=== PATIENT | male | born 1940 | race Two or more races ===

== ENCOUNTER 2018-12-12 10:13 | Day surgery (SDC) | payer MEDICARE, MEDICAID ==
--- NOTE | 2018-12-12 10:37 | Pre-Procedure Note/Attestation ---
Pre-Procedure Note/Attestation Complete Prior to Procedure Planned Procedure: left Procedure Narrative: Left RIRS Indications for Procedure Pre-Operative Diagnosis: left renal mass hematuria Attestation I attest that I discussed the nature of the procedure; its benefits; risks and complications; and alternatives (and the risks and benefits of such alternatives ), prior to the procedure, with the patient (or the patient's legal customer support representative). I attest that, if there was a reasonable possibility of needing a blood transfusion, the patient (or the patient's legal customer support representative) was given the [facility] standardized written summary, pursuant to the Kevon [place] Blood Safety Act ([place] Health and Safety Code # 1645, as amended). I attest that I re-evaluated the patient just prior to the surgery and that there has been no change in the patient's H&P, except as documented below: Jericho Desai MD Dec 12, 2018 10:37
[2018-12-26] MEDS ORDERED: Iothalamate Meglumine 60% 30ML INJ ONE (07:07)
== END 2018-12-12 12:13 | disposition home or self-care (01) ==
LOC: SUR 10:13
DX: N28.89 Other specified disorders of kidney and ureter (principal); R31.9 Hematuria, unspecified; Z53.9 Procedure and treatment not carried out, unspecified reason

== ENCOUNTER 2018-12-26 05:10 | Day surgery (SDC) | payer MEDICARE, MEDICAID ==
[2018-12-26] VITALS (10 sets, daily range): BP systolic 95–136; BP diastolic 58–82
[~2018-12-26] VITALS: Ht 167.6 cm; Wt 78.9 kg
[2018-12-26] MEDS ORDERED: TAMSULOSIN HCL0.4 MG ORAL (06:17)
[2018-12-26] MEDS ORDERED: RENA-VITE TABL0.8 M1 PO (06:17)
[2018-12-26] MEDS ORDERED: SYMBICORT 80-10.2 G1 IH (06:17)
[2018-12-26] MEDS ORDERED: PRAVASTATIN SOD20 M1 ORAL (06:17)
[2018-12-26] MEDS ORDERED: DOCUSATE SODIU250 MG ORAL (06:17)
[2018-12-26] MEDS ORDERED: ALLOPURINOL PO (06:17)
[2018-12-26] MEDS ORDERED: VITAMIN D250000 UNI1 ORAL (06:17)
[2018-12-26] MEDS ORDERED: DILTIAZEM 24HR180 M3 ORAL (06:17)
[2018-12-26] MEDS ORDERED: RENVELA0.8 GM ORAL (06:17)
[2018-12-26] MEDS ORDERED: VENTOLIN HFA18 GM INH (06:17)
[2018-12-26] MEDS ORDERED: ceFAZolin sod 1 GM in NS 55 ML IVPB ONE (07:00)
[2018-12-26] MEDS ORDERED: fentaNYL 100 mcg/2 mL IV ONE (07:12)
[2018-12-26] MEDS ORDERED: Lidocaine 1% MPF 10mg/ml 5ml ONE (07:12)
[2018-12-26] MEDS ORDERED: Midazolam 2mg/2ml Inj ONE (07:12)
[2018-12-26] MEDS ORDERED: Propofol 200mg/20ml IV ONE (07:12)
--- NOTE | 2018-12-26 07:20 | Anethesia Preoperative Eval ---
Anesthesia Pre-op PMH/ROS General Date of Evaluation: Dec 26, 2018 Time of Evaluation: 07:19 Anesthesiologist: Humaira Corral CRNA ASA Score: ASA 3 Mallampati Score Class I : Soft palate, uvula, fauces, pillars visible Class II: Soft palate, uvula, fauces visible Class III: Soft palate, base of uvula visible Class IV: Only hard plate visible Mallampati Classification: Class II Surgeon: Lloyd Diagnosis: LEFT Kidney disorder Surgical Procedure: LEFT intrarenal retrograde with kidney biopsy Anesthesia History: none Social History: smoking Family History: no anesthesia problems Allergies: Coded Allergies: CEPHALEXIN (Verified Allergy, Intermediate, 12/26/18) ITCHING LEVOFLOXACIN (Verified Allergy, Intermediate, 12/26/18) ITCHING NITROFURANTOIN (Verified Allergy, Unknown, 12/25/18) Medications: see eMAR Patient NPO?: Yes NPO Date: Dec 26, 2018 NPO Time: 00:00 Past Medical History Cardiovascular: Reports: HTN, CAD, [place] - s/p coronary artery stents, other - hyperlipidemia; Denies: valve dz, arrhythmia Pulmonary: Reports: COPD; Denies: asthma, CARLOS, other Gastrointestinal/Genitourinary: Reports: ESRD - peritoneal dialysis; Denies: GERD, CRI, other Neurologic/Psychiatric: Denies: dementia, CVA, depression/anxiety, TIA, other Endocrine: Denies: DM, hypothyroidism, steroids, other HEENT: Reports: [place] (L), [place] (R); Denies: cataract (L), cataract (R), glaucoma, other Hematology/Immune: Denies: anemia, DVT, bleeding disorder, other Musculoskeletal/Integumentary: Reports: OA; Denies: RA, DJD, DDD, edema, other PMH Narrative: as above PSxH Narrative: see chart Anesthesia Pre-op Phys. Exam Physician Exam Last Vital Signs Date Time Temp Pulse Resp B/P (MAP) Pulse Ox O2 Delivery O2 Flow Rate FiO2 12/26/18 06:37 Room Air 12/26/18 06:08 97.2 74 20 107/58 96 Constitutional: NAD Neurologic: CN 2-12 intact Cardiovascular: RRR, no M/R/G Respiratory: CTA Gastrointestinal: S/NT/ND Airway Exam Mallampati Score: Class II MO: full Neck: FROM TMD: > 3 FB ROM: full Teeth: missing Dentures: upper, lower Anesthesia Pre-op A/P Labs Chemistry Test 12/26/18 06:25 Potassium Level 4.3 MMOL/L (3.5-5.1) Studies Pre-op Studies: EKG - SR Risk Assessment & Plan Assessment: ASA 3, ok to proceed Plan: GETA Status Change Before Surgery: No Pre-Antibiotics Drug: KEVEND Humaira Corral CRNA Dec 26, 2018 07:20
[2018-12-26] MEDS ORDERED: Succinylcholine 20mg/ml 10ml vial ONE (07:28)
[2018-12-26] MEDS ORDERED: Zemuron 50mg/5ml Inj IV ONE (07:28)
[2018-12-26] MEDS ORDERED: Glycopyrrolate 0.2mg/ml 1ml Vial ONE (07:30)
[2018-12-26] MEDS ORDERED: Neostigmine 1mg/ml 10ml Inj ONE (07:30)
[2018-12-26] MEDS ORDERED: Sterile Water For Irrig 2000ml IRRIG ONE (07:30)
--- NOTE | 2018-12-26 07:31 | Pre-Procedure Note/Attestation ---
Pre-Procedure Note/Attestation Complete Prior to Procedure Planned Procedure: left Procedure Narrative: Left RIRS with Retrograde Pylogram stent placement Indications for Procedure Pre-Operative Diagnosis: renal obstruction Attestation I attest that I discussed the nature of the procedure; its benefits; risks and complications; and alternatives (and the risks and benefits of such alternatives ), prior to the procedure, with the patient (or the patient's legal premium service representative). I attest that, if there was a reasonable possibility of needing a blood transfusion, the patient (or the patient's legal premium service representative) was given the [facility] standardized written summary, pursuant to the Kevon [facility] Blood Safety Act ([place] Health and Safety Code # 1645, as amended). I attest that I re-evaluated the patient just prior to the surgery and that there has been no change in the patient's H&P, except as documented below: Jericho Desai MD Dec 26, 2018 07:31
[2018-12-26] MEDS ORDERED: NS Irrig 2000ml IRRIG ONE ×2 (07:39→08:23)
[2018-12-26] MEDS ORDERED: Clindamycin 600mg 50 ML IV ONE (07:47)
--- NOTE | 2018-12-26 08:02 | Brief Operative Note ---
Immediate Post Operative Note Operative Note Pre-op Diagnosis: renal obstruction Procedure: RIRS with RPG left Post-op Diagnosis: same Surgeon: Ambrosio Desai Anesthesia: general Specimen: none Complications: none Condition: stable Fluids: 500 Estimated Blood Loss: minimal Implant(s) used?: Jericho Rincon MD Dec 26, 2018 08:02
[2018-12-26] MEDS ORDERED: D5 1/2NS 1,000 ML IV SCH (08:15)
[2018-12-26] MEDS ORDERED: HYDROcodone/Acetamin 5/325 tab ORAL PRN (08:15)
[2018-12-26] MEDS ORDERED: HYDROmorphone 1mg/ml Carpuject SUBQ PRN (08:15)
[2018-12-26] MEDS ORDERED: Tylenol #3 tab (300mg/30mg) ORAL PRN (08:15)
[2018-12-26] MEDS ORDERED: Esmolol 100mg/10ml Inj ONE (08:22)
[2018-12-26] MEDS ORDERED: Esmolol 100mg/10ml Inj IV ONE (08:45)
[2018-12-26] MEDS ORDERED: Hydromorphone 0.5mg/0.5ml inj IVP PRN (08:45)
--- NOTE | 2018-12-26 08:45 | Immediate Post-Op Evaluation ---
Immediate Post-Op Evalulation Immediate Post-Op Evalulation Procedure: Retrograde intrarenal surgery Date of Evaluation: Dec 26, 2018 Time of Evaluation: 08:25 IV Fluids: 0.9 NS 200 ml Estimated Blood Loss: none Blood Pressure Systolic: 119 Blood Pressure Diastolic: 72 Pulse Rate: 119 Respiratory Rate: 18 O2 Sat by Pulse Oximetry: 100 Temperature (Fahrenheit): 97.3 Pain Score (1-10): 0 Nausea: No Vomiting: No Complications none Patient Status: awake, reacts, patent, extubated Hydration Status: adequate Drug: clindamycin 600 mg IV Given Within 1 Hr of Incision: Yes Time Given: 07:47 Humaira Corral CRNA Dec 26, 2018 08:44
--- NOTE | 2018-12-27 09:32 | Diagnostic Imaging Report ---
INDICATION: Pain, intraoperative TECHNIQUE: Intraoperative imaging Fluoroscopy time: 7 seconds Total dose: 0.99980 mGym2 Total number of images: 4 COMPARISON: None FINDINGS: Intraoperative images demonstrate opacification of normal caliber left ureter. There is abrupt termination of the contrast column in the expected region of the proximal ureter IMPRESSION:
[2018-12-27 11:25] VITALS: BP 112/63
--- NOTE | 2018-12-27 11:25 | 48 Hour Post Anesthesia Eval ---
Post Anesthesia Evaluation Procedure: Retrograde intrarenal surgery Date of Evaluation: Dec 27, 2018 Time of Evaluation: 09:30 Blood Pressure Systolic: 112 0: 63 Pulse Rate: 84 Respiratory Rate: 17 Temperature (Fahrenheit): 97.0 O2 Sat by Pulse Oximetry: 97 Airway: patent Nausea: No Vomiting: No Pain Intensity: 0 Hydration Status: adequate Cardiopulmonary Status: stable Mental Status/LOC: patient returned to baseline Follow-up Care/Observations: per urology Post-Anesthesia Complications: none Follow-up care needed: N/A Humaira Corral CRNA Dec 27, 2018 11:25
--- NOTE | 2018-12-27 13:13 | Operative Note - Dictated ---
DATE OF OPERATION: 12/26/2018 PREOPERATIVE DIAGNOSIS: Left ureteral obstruction, rule out left renal mass. POSTOPERATIVE DIAGNOSIS: Left ureteral obstruction, rule out left renal mass. OPERATION: Cystoscopy, retrograde intrarenal surgery, retrograde pyelogram of the left ureter and the left kidney. HAND FRETTED INSTRUMENT MAKER: Jericho Desai M.D. ANESTHESIA: General. FINDINGS: Completely obstructing left ureter with most likely ureteral mass. INDICATIONS FOR SURGERY: The patient is on peritoneal dialysis who developed gross hematuria. CT urogram showed filling defects in the collecting system of the left kidney and ureteral dilation. The patient thus was hospitalized for acute urinary tract infection as well as his retention cleared. He was started on peritoneal dialysis and prepared for surgery. I discussed this case with my colleagues including the vice president payment following the patient who agreed with the plan and the patient signed a consent. DESCRIPTION OF PROCEDURE: Brought to the operating room, placed in lithotomy position. Prepped and draped in standard fashion. Under general anesthesia, cystoscope was introduced into the bladder. Bladder was cannulated with a catheter. Contrast was injected into the left ureter. There was an abrupt obstruction at the level of the upper left ureter. Ureteroscope flexible ureteroscopy showed some filling defects in the collecting system and ureter at the upper level with obstruction. Procedure was then terminated. The patient was transferred to recovery room in stable condition. No evidence of complications. Sponge count and instrument count was correct. Jericho Desai M.D. DR: CIARAN JOB#: [id number] CC:
== END 2018-12-26 10:05 | disposition home or self-care (01) ==
LOC: SUR 05:10
DX: N13.5 Crossing vessel and stricture of ureter without hydronephrosis (principal); I25.2 Old myocardial infarction; Z95.5 Presence of coronary angioplasty implant and graft; E78.5 Hyperlipidemia, unspecified; I13.11 Hypertensive heart and chronic kidney disease without heart failure, with stage 5 chronic kidney disease, or end stage renal disease; N18.6 End stage renal disease; Z99.2 Dependence on renal dialysis; M19.90 Unspecified osteoarthritis, unspecified site; J44.9 Chronic obstructive pulmonary disease, unspecified; Z88.8 Allergy status to other drugs, medicaments and biological substances
CPT/HCPCS: 36415; 52000; 74420; 76000; 84132; J0330; J2250; J2704; J2710; J3010; 94003; 94150; S0077

== ENCOUNTER 2019-02-06 05:36 | Inpatient (IN) | payer MEDICARE, MEDICAID ==
[2019-02-06] VITALS (26 sets, daily range): BP systolic 59–121; BP diastolic 39–67
[~2019-02-06] VITALS: Ht 165.1 cm; Wt 75.7 kg
[~2019-02-06 05:36] MED LIST: ALLOPURINOL PO; DILTIAZEM 24HR180 M3 ORAL; DOCUSATE SODIU250 MG ORAL; PRAVASTATIN SOD20 M1 ORAL; RENA-VITE TABL0.8 M1 PO; RENVELA0.8 GM ORAL; SYMBICORT 80-10.2 G1 IH; TAMSULOSIN HCL0.4 MG ORAL; VENTOLIN HFA18 GM INH; VITAMIN D250000 UNI1 ORAL
[2019-02-06] MEDS ORDERED: fentaNYL 100 mcg/2 mL IV ONE (07:08)
[2019-02-06] MEDS ORDERED: Midazolam 2mg/2ml Inj ONE ×2 (07:08→10:31)
[2019-02-06] MEDS ORDERED: Propofol 200mg/20ml IV ONE (07:08)
[2019-02-06] MEDS ORDERED: Lidocaine 1% MPF 10mg/ml 5ml ONE ×2 (07:08→07:09)
[2019-02-06] MEDS ORDERED: Phenylephrine 10mg/ml Vial ONE (07:09)
[2019-02-06] MEDS ORDERED: ePHEDrine 50mg/ml Inj ONE (07:09)
[2019-02-06] MEDS ORDERED: Bupivacaine 0.5% Inj 30 ml vial INJ ONE (07:14)
[2019-02-06] MEDS ORDERED: Succinylcholine 20mg/ml 10ml vial ONE (07:33)
[2019-02-06] MEDS ORDERED: Zemuron 50mg/5ml Inj IV ONE (07:33)
--- NOTE | 2019-02-06 07:47 | Pre-Procedure Note/Attestation ---
Pre-Procedure Note/Attestation Complete Prior to Procedure Planned Procedure: left Procedure Narrative: Laparoscopic nephroureterectomy Indications for Procedure Pre-Operative Diagnosis: left renal mass Attestation I attest that I discussed the nature of the procedure; its benefits; risks and complications; and alternatives (and the risks and benefits of such alternatives ), prior to the procedure, with the patient (or the patient's legal event marketing representative). I attest that, if there was a reasonable possibility of needing a blood transfusion, the patient (or the patient's legal event marketing representative) was given the [facility] standardized written summary, pursuant to the Kevon [place] Blood Safety Act ([place] Health and Safety Code # 1645, as amended). I attest that I re-evaluated the patient just prior to the surgery and that there has been no change in the patient's H&P, except as documented below: Jericho Desai MD Feb 06, 2019 07:47
--- NOTE | 2019-02-06 07:51 | Anethesia Preoperative Eval ---
Anesthesia Pre-op PMH/ROS General Date of Evaluation: Feb 06, 2019 Time of Evaluation: 07:20 Anesthesiologist: Humaira Corral CRNA ASA Score: ASA 4 Mallampati Score Class I : Soft palate, uvula, fauces, pillars visible Class II: Soft palate, uvula, fauces visible Class III: Soft palate, base of uvula visible Class IV: Only hard plate visible Mallampati Classification: Class II Surgeon: Lloyd Diagnosis: Left renal mass, ESRD Surgical Procedure: LEFT laparoscopic nephrectomy, HD catheter placement Anesthesia History: none Social History: smoking Family History: no anesthesia problems Allergies: Coded Allergies: CEPHALEXIN (Verified Allergy, Intermediate, 12/26/18) ITCHING LEVOFLOXACIN (Verified Allergy, Intermediate, 12/26/18) ITCHING NITROFURANTOIN (Verified Allergy, Unknown, 12/25/18) Medications: see eMAR Patient NPO?: Yes NPO Date: Feb 05, 2019 NPO Time: 1300 Past Medical History Cardiovascular: Reports: HTN, CAD, [place] - 1994 s/p [place] stents, other - hypercholesterolemia Pulmonary: Reports: asthma Gastrointestinal/Genitourinary: Reports: GERD, ESRD - Daily PD, other - LEFT renal CA HEENT: Reports: cataract (L), cataract (R), [place] (L), [place] (R) Hematology/Immune: Reports: anemia, other - Thrombocytopenia PMH Narrative: as noted above PSxH Narrative: see H & P Anesthesia Pre-op Phys. Exam Physician Exam Last Vital Signs Date Time Temp Pulse Resp B/P (MAP) Pulse Ox O2 Delivery O2 Flow Rate FiO2 02/06/19 06:12 Room Air Constitutional: NAD Neurologic: other - alert and oriented Cardiovascular: RRR Respiratory: CTA Gastrointestinal: S/NT/ND Airway Exam Mallampati Score: Class IV MO: full Neck: FROM TMD: > 3 FB ROM: full Teeth: missing Dentures: upper, lower Anesthesia Pre-op A/P Labs Hematology Test 02/06/19 07:44 White Blood Count Pending Red Blood Count Pending Hemoglobin Pending Hematocrit Pending Mean Corpuscular Volume Pending Mean Corpuscular Hemoglobin Pending Mean Corpuscular Hemoglobin Concent Pending Red Cell Distribution Width Pending Platelet Count Pending Mean Platelet Volume Pending Neutrophils (%) (Auto) Pending Lymphocytes (%) (Auto) Pending Monocytes (%) (Auto) Pending Eosinophils (%) (Auto) Pending Basophils (%) (Auto) Pending Chemistry Test 02/06/19 07:44 Sodium Level Pending Potassium Level Pending Chloride Level Pending Carbon Dioxide Level Pending Blood Urea Nitrogen Pending Creatinine Pending Estimat Glomerular Filtration Rate Pending Glucose Level Pending Calcium Level Pending Studies Pre-op Studies: EKG - DR, CXR - no acute disease, echo - LVEF 65%m mild diastolic dysfunction Risk Assessment & Plan Assessment: ASA 4, ok to proceed Plan: GETA Status Change Before Surgery: No Pre-Antibiotics Drug: Humaira Sterling CRNA Feb 06, 2019 07:51
[2019-02-06] MEDS ORDERED: NS Irrig 1000ml IRRIG ONE ×2 (07:53→09:00)
[2019-02-06 08:00] LABS: HEMATOCRIT 34.7 % (42.0-52.0); MEAN CORPUSCULAR VOLUME 99 FL (80-99); PLATELET COUNT 82 K/UL (150-450); RED BLOOD COUNT 3.52 M/UL (4.70-6.10); RED CELL DISTRIBUTION WIDTH 15.2 % (11.6-14.8); WHITE BLOOD COUNT 4.5 K/UL (4.8-10.8)
[2019-02-06] MEDS ORDERED: Acetaminophen (Non formulary) 100 ML IV ONE (08:00)
[2019-02-06] MEDS ORDERED: Sterile Water Irrig 1000ml IRRIG ONE (08:00)
[2019-02-06] MEDS ORDERED: NS Irrig 1000ml ONE (08:00)
[2019-02-06 08:03] LABS: ANION GAP 13 mmol/L (5-15); BLOOD UREA NITROGEN 53 mg/dL (7-18); CALCIUM 8.1 MG/DL (8.5-10.1); CARBON DIOXIDE 23 MMOL/L (21-32); CHLORIDE 105 MMOL/L (98-107); CREATININE 13.8 MG/DL (0.55-1.30); POTASSIUM 3.8 MMOL/L (3.5-5.1); SODIUM 141 MMOL/L (136-145)
[2019-02-06] MEDS ORDERED: Albuterol 90mcg Inhaler 8gm INH ONE ×2 (08:06→08:07)
[2019-02-06] MEDS ORDERED: Clindamycin 600mg 50 ML IV ONE (08:07)
[2019-02-06] MEDS ORDERED: Hydromorphone 0.5mg/0.5ml inj IVP PRN (10:15)
[2019-02-06] MEDS ORDERED: Metoclopramide 10mg/2ml Inj IVP PRN (10:15)
[2019-02-06] MEDS ORDERED: DiphenhydrAMINE 50mg/ml Inj ONE (10:30)
[2019-02-06] MEDS ORDERED: Glycopyrrolate 0.2mg/ml 1ml Vial ONE (10:37)
[2019-02-06] MEDS ORDERED: Neostigmine 1mg/ml 10ml Inj ONE (10:37)
[2019-02-06 10:59] LABS: HEMATOCRIT 29.8 % (42.0-52.0); HEMOGLOBIN 9.7 G/DL (14.2-18.0); MEAN CORPUSCULAR VOLUME 98 FL (80-99); PLATELET COUNT 108 K/UL (150-450); RED BLOOD COUNT 3.04 M/UL (4.70-6.10); RED CELL DISTRIBUTION WIDTH 15.3 % (11.6-14.8); WHITE BLOOD COUNT 18.5 K/UL (4.8-10.8)
--- NOTE | 2019-02-06 11:30 | Brief Operative Note ---
Immediate Post Operative Note Operative Note Pre-op Diagnosis: left renal mass Procedure: Left laparoscopic radical nephroureterectomy Post-op Diagnosis: same Post-op Diagnosis: same as pre-op Surgeon: Ambrosio Desai Naval Architect Specialist: Nickolas Chinchilla Anesthesia: general Specimen: yes Complications: none Condition: stable Fluids: 2000 Estimated Blood Loss: volume - 5 Implant(s) used?: No Jericho Desai MD Feb 06, 2019 11:30
--- NOTE | 2019-02-06 11:40 | NUR ---
CASE MANAGEMENT:REVIEW 78 YR OLD MALE HERE FOR SURGERY SI: LEFT RENAL MASS 97.2 69 20 121/67 96% ON RA H/H-11.0/34.7 PLT-82 IS:TO SURGERY FOR: LT LAPAROSCOPIC RADICAL NEPHROURETERECTOMY : CURRENTLY IN SURGERY interqual criteria met
--- NOTE | 2019-02-06 11:42 | Immediate Post-Op Evaluation ---
Immediate Post-Op Evalulation Immediate Post-Op Evalulation Procedure: LEFT laparoscopic nephrectomy, HD catheter insertion Date of Evaluation: Feb 06, 2019 Time of Evaluation: 11:06 IV Fluids: 0.9 NS 3500 ml Blood Products: 500 ml PRBC, 275 ml Plateletpheresis Estimated Blood Loss: 1000ml Urinary Output: 0 Blood Pressure Systolic: 74 Blood Pressure Diastolic: 47 Pulse Rate: 91 Respiratory Rate: 20 O2 Sat by Pulse Oximetry: 100 Temperature (Fahrenheit): 98.0 Pain Score (1-10): 0 Nausea: No Vomiting: No Complications hypotension 2/2 to hypovolemia (EBL 1000 ml); plan to admit to ICU, additional PRBCs ordered Patient Status: awake, reacts, patent, extubated Hydration Status: other - see complications note above Drug: clindamycin 600 mg Iv @0815; gentamycin 80 mg IV @ 0950 Given Within 1 Hr of Incision: Yes Time Given: 08:15 Humaira Corral CRNA Feb 06, 2019 11:42
--- NOTE | 2019-02-06 12:30 | NUR ---
NURSE NOTES: Received the patient from SCOTT Farris. Patient is awake, alert and orientedx4. On 4L via NC with a humidifier, O2 sat 100%. SR noted on the monitor. abd surgical site dressing intact, clean and dry. Left hand 20G and left forearm 22G intact and patent, 3rd unit PRBC blood transfusion ongoing. Patient on SCDs on bilateral lower extremities. Chest xray done before patient was transferred. labs to be done 1hr after blood transfusion is completed. Checked pt's belongings. Pt's son at bedside. Bed in lowest position, locked, side rails upx2, bed alarm on. Call light within reach. Will continue to monitor.
--- NOTE | 2019-02-06 13:02 | Diagnostic Imaging Report ---
Indication: Shortness of breath Technique: One view of the chest Comparison: none Findings: There is a left jugular temporary dialysis catheter in place, tip projected at the level the mid superior vena cava. No pneumothorax. Lungs pleural spaces are clear. There is atelectasis at the left lung base. Impression: No acute process
--- NOTE | 2019-02-06 13:10 | NUR ---
NURSE NOTES: Dr. Chaudhary at bedside to assess the patient. updated on pt's status. new labs and IVF order received. Per Dr. Jet MD to enter all other orders including admitting orders. Addendum: 02/06/19 at 1549 by ANUSHA LOPEZ RN aware of low BP
--- NOTE | 2019-02-06 13:29 | Consultation ---
Consult Note Assessment/Plan ESRD on CAPD Left Nephrectomy h/o Stent Smoke # [id number] Tyson Chaudhary MD Feb 06, 2019 13:29
[2019-02-06] MEDS ORDERED: HYDROmorphone 1mg/ml Carpuject IVP PRN (13:30)
[2019-02-06] MEDS ORDERED: D5NS 1,000 ML IV SCH (13:30)
--- NOTE | 2019-02-06 13:30 | NUR ---
NURSE NOTES: blood transfusion completed. verified blood transfusion order with Dr. Chinchilla. Total of 3 units of PRBC to be given per Dr. Chinchilla. Addendum: 02/06/19 at 1537 by ANUSHA LOPEZ RN No adverse reaction noted.
[2019-02-06] MEDS: D5NS 1,000 ML IV SCH (14:11)
[2019-02-06] MEDS ORDERED: LACTULOSE10 GM/153 PO (14:34)
[2019-02-06 15:12] LABS: INR 1.1 (0.9-1.1)
[2019-02-06 15:15] LABS: HEMATOCRIT 32.3 % (42.0-52.0); HEMOGLOBIN 10.5 G/DL (14.2-18.0); MEAN CORPUSCULAR VOLUME 98 FL (80-99); PLATELET COUNT 90 K/UL (150-450); RED BLOOD COUNT 3.29 M/UL (4.70-6.10); WHITE BLOOD COUNT 17.4 K/UL (4.8-10.8)
[2019-02-06 15:21] LABS: ANION GAP 14 mmol/L (5-15); BLOOD UREA NITROGEN 54 mg/dL (7-18); CARBON DIOXIDE 20 MMOL/L (21-32); CHLORIDE 109 MMOL/L (98-107); CREATININE 13.3 MG/DL (0.55-1.30); POTASSIUM 4.2 MMOL/L (3.5-5.1); SODIUM 143 MMOL/L (136-145)
[2019-02-06 15:32] LABS: ALANINE AMINOTRANSFERASE 35 U/L (12-78); ALBUMIN 1.7 G/DL (3.4-5.0); ALBUMIN/GLOBULIN RATIO 0.6 (1.0-2.7); ALKALINE PHOSPHATASE 195 U/L (46-116); ASPARTATE AMINO TRANSFERASE 42 U/L (15-37); BILIRUBIN,TOTAL 1.7 MG/DL (0.2-1.0)
[2019-02-06 15:33] LABS: BILIRUBIN,DIRECT 0.6 MG/DL (0.0-0.3)
[2019-02-06 15:44] LABS: PHOSPHORUS 7.8 MG/DL (2.5-4.9)
--- NOTE | 2019-02-06 15:45 | NUR ---
NURSE NOTES: Encouraged patient to use incentive spirometer. Patient education provided. Pt's son at bedside.
--- NOTE | 2019-02-06 16:10 | NUR ---
NURSE NOTES: Pt is seen by Dr. Chinchilla. MD made aware of lab results. New orders noted.
[2019-02-06] MEDS ORDERED: Gentamicin 120mg/100ml NS INJ 100 ML IVPB ONE (16:15)
[2019-02-06] MEDS ORDERED: DiphenhydrAMINE 50mg/ml Inj IVP PRN (16:15)
[2019-02-06] MEDS ORDERED: Vancomycin 1 GM in D5W 275 ML IVPB ONE (17:00)
--- NOTE | 2019-02-06 17:09 | NUR ---
NURSE NOTES: Patient on room air, O2 sat 100%. Denies SOB.
--- NOTE | 2019-02-06 17:15 | Consultation ---
DATE OF CONSULTATION: 02/06/2019 RENAL CONSULTATION: CONSULTING PHYSICIAN: Tyson Chaudhary M.D. HISTORY OF PRESENT ILLNESS: I was asked to evaluate the patient at the request of Dr. Jericho Desai postoperatively for dialysis management. The patient is a 78-year-old male who came in this morning, electively underwent laparoscopic left nephrectomy. The patient known to have end-stage renal disease and past history of coronary artery disease and status post stent placement. The patient however had a Cardiology clearance prior to surgery. Postoperatively, I am seeing the patient in the intensive care unit room B with son at the bedside. ALLERGIES: Cephalexin, levofloxacin, and nitrofurantoin. MEDICATIONS: Include allopurinol, Cardizem, stool softener, vitamin D, lactulose, Pravachol, Renvela, Symbicort, and Flomax. HABITS: The patient has been a smoker. PAST HISTORY: As mentioned, the patient has history of hyperuricemia, end-stage renal disease on CAPD for the past 4 to 5 years, coronary artery disease, high cholesterol, obstructive lung disease, and BPH. PHYSICAL EXAMINATION: VITAL SIGNS: Right now in ICU, the patient's blood pressure is 85 to 95. The patient receiving the third unit of packed RBCs. The patient is not in any distress. Pulse rate 85, pulse ox 96%. The patient is afebrile. HEENT: Head is normocephalic. Sclerae not icteric. The patient is arousable. Breathing easy through nasal cannula. NECK: Supple. HEART: Regular. LUNGS: No wheeze. No rhonchi. Poor inspiratory effort. ABDOMEN: A Tenckhoff catheter is in place and scar of today's surgery in the midupper abdomen seen. ABDOMEN: Soft. Bowel sounds not present. EXTREMITIES: Lower extremities, no edema. NEUROLOGIC: The patient is arousable and moves all extremities. IMPRESSION: 1. Postoperative day #1, left nephrectomy by Dr. Desai and also general surgeon, Dr. Maxi Chinchilla. 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 2. End-stage renal disease, on CAPD. 3. History of hypertension, coronary artery disease, high cholesterol, and obstructive lung disease. PLAN: At this point is postop care. Dr. Desai asked me to call Dr. Luis Maher as an senior sql developer. Meanwhile, the patient's blood work will be repeated. Hemodynamic support will be provided. As needed will be dialyzed through the left jugular Case catheter that is already put in the emergency room since post abdominal surgery CAPD cannot be done. The patient will be NPO. Pain medications will be given and according to how the patient's condition evolves, we will make the proper changes in our future management. Tyson Chaudhary M.D. DR: HALI JOB#: [id number] CC:
[2019-02-06] MEDS: Midodrine 10mg tab ORAL SCH (17:26)
[2019-02-06] MEDS ORDERED: Gentamicin inj 120 MG in NS 110 ML IVPB ONE (18:00)
--- NOTE | 2019-02-06 18:00 | NUR ---
NURSE NOTES: Patient refused to eat dinner at this time. Patient denies pain at this time. Patient resting in bed comfortably with eyes closed. Will continue to monitor.
--- NOTE | 2019-02-06 19:10 | NUR ---
HAND-OFF: Report given to SCOTT Donnelly. Addendum: 02/06/19 at 1910 by ANUSHA LOPEZ RN Correction: Report given to SCOTT Samuel.
--- NOTE | 2019-02-06 19:30 | NUR ---
NURSE NOTES:Received pt asleep but easily arousable to verbal stimuli, pt S/P Left laparoscopic radical nephroureterectomy, laparoscopic site drsg dry and intact, with peritoneal cath well secured with tape to avoid being pulled. SR on the monitor, Bp stable afebrile. Case cath Left IJ with drsg dry and intact. Pt is anuric, On 02 at 2L/nc No SOB noted. encouraged to use incentive spirometer, tolerated x 10 while awake and was able to raise 1000ml.02 sat 100%. will continue to monitor.
[2019-02-06] MEDS: Hydromorphone 0.5mg/0.5ml inj IVP PRN (20:23)
[2019-02-06] MEDS: Pantoprazole Inj IVP SCH (21:21)
--- NOTE | 2019-02-06 21:30 | NUR ---
NURSE NOTES:Tolerating sips of water , HOB kept elevated, on aspiration precaution.
[2019-02-06 22:04] LABS: ANION GAP 13 mmol/L (5-15); BLOOD UREA NITROGEN 54 mg/dL (7-18); CALCIUM 7.2 MG/DL (8.5-10.1); CARBON DIOXIDE 20 MMOL/L (21-32); CHLORIDE 107 MMOL/L (98-107); CREATININE 13.4 MG/DL (0.55-1.30); POTASSIUM 4.5 MMOL/L (3.5-5.1); SODIUM 140 MMOL/L (136-145)
[2019-02-06 22:18] LABS: HEMATOCRIT 29.1 % (42.0-52.0); HEMOGLOBIN 9.5 G/DL (14.2-18.0); MEAN CORPUSCULAR VOLUME 96 FL (80-99); PLATELET COUNT 75 K/UL (150-450); RED BLOOD COUNT 3.02 M/UL (4.70-6.10); RED CELL DISTRIBUTION WIDTH 15.4 % (11.6-14.8); WHITE BLOOD COUNT 11.7 K/UL (4.8-10.8)
--- NOTE | 2019-02-06 23:07 | NUR ---
NURSE NOTES:Dr Chinchilla was aware with pts latest CBC. No orders given.
[2019-02-07] VITALS (24 sets, daily range): BP systolic 95–145; BP diastolic 38–83
--- NOTE | 2019-02-07 00:15 | Operative Note - Dictated ---
DATE OF OPERATION: 02/06/2019 PREOPERATIVE DIAGNOSIS: Left renal mass. POSTOPERATIVE DIAGNOSIS: Left renal mass. OPERATION PERFORMED: 1. Laparoscopic left radical nephroureterectomy performed by Dr. Jericho Desai. 2. Hemostasis of splenic bleeding. 3. Left internal jugular temporary hemodialysis catheter placement. SURGEONS: Maxi Chinchilla M.D. and Jericho Desai M.D. ANESTHESIA: Humaira Corral, TUMBLER OPERATOR, CONFIGURATION MANAGEMENT ADVISOR. ESTIMATED BLOOD LOSS: See records. WOUND CLASSIFICATION: Class 1. COUNTS: Sponge and needle count correct x2. COMPLICATIONS: None. DRAINS: None. OPERATIVE NOTE: I was called to come evaluate and help assist Dr. Jericho Desai for laparoscopic left radical nephroureterectomy at which time a large dense left kidney with significant adhesions to the spleen and surrounding structures was identified and dissected out. There was necessity to dissect around the spleen with the inferior pole of spleen capsule was violated as anticipated. Following this, the remainder of the nephroureterectomy was difficult to managed. Please see Dr. Jericho Desai's operative note for details. Once that portion of procedure was completed, we evaluated for hemostasis and to control hemostasis of the spleen for control rather than splenectomy or more aggressive interventions. Initially, we began by identifying the areas of spleen that required hemostasis. A lap was placed and pressure was held for a few minutes. Following this, the area was evaluated and he had improved significantly. There was still some oozing and therefore FloSeal and Surgicel were applied and gentle pressure was held again. After a course of few minutes, it was re-evaluated and fortunately good hemostasis was identified and spleen was salvageable and salvaged without any complication. Following this, the remainder of the abdomen was inspected and noted to be hemostatic without any complications. The renal hilum was identified and noted to be with intact clips and surgical jaci with good hemostasis. No other abnormalities or complications were identified. The remainder of bowel contents were identified and noted to be without complication. At this time, bowel contents left in anatomic position and the procedure was concluded with closure of the fascia and skin incisions followed by dressings. Following the completion of the dressings, the patient has history of end-stage renal disease on peritoneal dialysis. Unfortunately, peritoneal dialysis cannot be completed at this time given the severity and nature of the recent surgery and therefore the patient will require hemodialysis and hopefully a temporary short time until he is allowed to heal from the recent surgery. A temporary hemodialysis catheter was recommended and the patient consented to procedure prior. The left neck was prepped and draped in the standard surgical fashion. Using ultrasound guidance, the left internal jugular vein was identified and cannulated under direct visualization using a finder needle. Once good venous flow was identified, a guidewire was placed through the finder needle and finder needle removed. Ultrasound sound was used and the guidewire was identified to be into the left internal jugular vein coursing down inferiorly. Following this, the ultrasound was used and a guidewire was identified in the left internal jugular vein coursing inferiorly. Following this, a small skin incision was made at the level of the guidewire. Following this, dilators were used to dilate the tract. The temporary hemodialysis catheter was then inserted over the guidewire without complication. Dilator was removed and discarded. Both ports flushed and aspirated appropriately without complication. Ports were heparinized. The catheter was sutured to the skin using provided nylon suture. Dressings were applied. Postprocedure chest x-ray was obtained identifying tip of catheter in the superior vena cava without complication. The patient tolerated the procedure well, was extubated and taken to intensive care unit in stable condition. Maxi Chinchilla M.D. DR: DREW JOB#: [id number] CC: SARAH
--- NOTE | 2019-02-07 01:00 | NUR ---
NURSE NOTES:Dozing on and off with VSS.
[2019-02-07] MEDS: Hydromorphone 0.5mg/0.5ml inj IVP PRN ×3 (02:03→18:51)
--- NOTE | 2019-02-07 02:05 | NUR ---
NURSE NOTES:Hydromorphone 0.5mg ivp given for post surgical pain scale of 10.
--- NOTE | 2019-02-07 04:00 | NUR ---
NURSE NOTES:Complete bath with bed changed done.
[2019-02-07 04:43] LABS: HEMATOCRIT 29.8 % (42.0-52.0); HEMOGLOBIN 9.7 G/DL (14.2-18.0); MEAN CORPUSCULAR VOLUME 97 FL (80-99); PLATELET COUNT 82 K/UL (150-450); RED BLOOD COUNT 3.07 M/UL (4.70-6.10); RED CELL DISTRIBUTION WIDTH 15.9 % (11.6-14.8); WHITE BLOOD COUNT 8.4 K/UL (4.8-10.8)
--- NOTE | 2019-02-07 05:00 | NUR ---
NURSE NOTES:Tolerating well incentive spirometer .
[2019-02-07 05:25] LABS: ALANINE AMINOTRANSFERASE 28 U/L (12-78); ALBUMIN 2.4 G/DL (3.4-5.0); ALBUMIN/GLOBULIN RATIO 0.8 (1.0-2.7); ALKALINE PHOSPHATASE 158 U/L (46-116); ANION GAP 13 mmol/L (5-15); ASPARTATE AMINO TRANSFERASE 36 U/L (15-37); BILIRUBIN,TOTAL 0.8 MG/DL (0.2-1.0); BLOOD UREA NITROGEN 56 mg/dL (7-18); CALCIUM 7.4 MG/DL (8.5-10.1); CARBON DIOXIDE 20 MMOL/L (21-32); CHLORIDE 107 MMOL/L (98-107); CHOLESTEROL 84 MG/DL (< 200); CREATININE 13.7 MG/DL (0.55-1.30); FERRITIN 429 NG/ML (8-388); GAMMA GLUTAMYL TRANSPEPTIDASE 83 U/L (5-85); HDL CHOLESTEROL 39 MG/DL (40-60); PHOSPHORUS 9.3 MG/DL (2.5-4.9); POTASSIUM 4.7 MMOL/L (3.5-5.1); SODIUM 140 MMOL/L (136-145); TRIGLYCERIDES 75 MG/DL (30-150)
[2019-02-07 05:43] LABS: % IRON SATURATION 21 % (15-50); IRON 26 ug/dL (50-175); TOTAL IRON BINDING CAPACITY 122 ug/dL (250-450)
--- NOTE | 2019-02-07 06:00 | NUR ---
NURSE NOTES:Abdominal drsg dry and intact. with peritoneal cath in place.
--- NOTE | 2019-02-07 07:25 | NUR ---
NURSE NOTES: Called [facility] dialysis center for urgent HD order, confirmed with Dialysis nurseJuan Alberto.
--- NOTE | 2019-02-07 07:32 | NUR ---
HAND-OFF: Report given to Nessa Salinas RN
--- NOTE | 2019-02-07 07:45 | NUR ---
NURSE NOTES: Received the patient from SCOTT Samuel. Patient is awake, alert and orientedx4, resting in bed. O2 sat 99% on Room air. SR noted on the monitor. no acute distress noted. abd surgical site dressings intact, clean and dry. Patient noted with mild tenderness around surgical site. Left hand 20G and left forearm 22G intact and patent, running D5NS at 50ml/hr. Patient on SCDs on bilateral lower extremities. Patient refused breakfast at this time. Encouraged to use incentive spirometer. VSS, afebrile. Bed in lowest position, locked, side rails upx3, bed alarm on. Call light within reach. Will continue to monitor.
--- NOTE | 2019-02-07 08:00 | NUR ---
NURSE NOTES: dialysis consent signed by the patient, filed in the chart.
[2019-02-07] MEDS: Pantoprazole Inj IVP SCH ×2 (08:39→21:20)
[2019-02-07] MEDS: D5NS 1,000 ML IV SCH (08:39)
[2019-02-07] MEDS: Midodrine 10mg tab ORAL SCH ×3 (08:39→17:10)
--- NOTE | 2019-02-07 09:05 | NUR ---
NURSE NOTES: Patient c/o mid abd pain around surgical site. prn pain med given. pt resting in bed with eyes closed at this time.
[2019-02-07] MEDS: Metoclopramide 10mg/2ml Inj IVP SCH ×3 (09:56→21:20)
--- NOTE | 2019-02-07 10:10 | NUR ---
NURSE NOTES: Patient is exercising with physical therapist. VSS. patient tolerating well.
--- NOTE | 2019-02-07 10:25 | NUR ---
NURSE NOTES: Okay to use new left IJ dialysis access for dialysis. HD nurse at bedside.
--- NOTE | 2019-02-07 10:45 | NUR ---
Social Service Note Patient is alert, oriented and verbally responsive. Patient lives at home with his [place] [phone]. Patient is a full code. Patient was independent prior to admission and receives dialysis 3x a week. Patient will return home once medically appropriate and will follow up with PCP. Will monitor and be available as needed.
--- NOTE | 2019-02-07 11:56 | NUR ---
NURSE NOTES: Hemodialysis ongoing, dialysis at bedside, VSS. No c/o pain at this time.
[2019-02-07] MEDS ORDERED: Heparin 1000 units/ml 1ml Vial INJ SCH (12:30)
[2019-02-07] MEDS ORDERED: Heparin Sod 1000 units/ml 10ml INJ SCH (12:30)
[2019-02-07] MEDS ORDERED: Heparin 5000 units/ml inj INJ SCH (12:30)
--- NOTE | 2019-02-07 12:55 | NUR ---
NURSE NOTES: Dialysis completed, 1.5L out, VSS. Patient sitting on the side of the bed. No acute distress.
--- NOTE | 2019-02-07 13:10 | 48 Hour Post Anesthesia Eval ---
Post Anesthesia Evaluation Procedure: LEFT laparoscopic nephrectomy, HD catheter insertion Date of Evaluation: Feb 07, 2019 Time of Evaluation: 13:09 Blood Pressure Systolic: 104 0: 75 Pulse Rate: 72 Respiratory Rate: 20 Temperature (Fahrenheit): 97.6 O2 Sat by Pulse Oximetry: 98 Airway: patent Nausea: No Vomiting: No Pain Intensity: 3 Hydration Status: adequate Cardiopulmonary Status: stable no pressors Mental Status/LOC: patient returned to baseline Follow-up Care/Observations: n/a Post-Anesthesia Complications: none Follow-up care needed: N/A Aristeo Estrada MD Feb 07, 2019 13:10
--- NOTE | 2019-02-07 13:33 | Nephrology Progress Note ---
Assessment/Plan Problem List: (1) ESRD (end stage renal disease) (2) S/p nephrectomy (3) CAD (coronary artery disease) (4) Smoker Plan HD in process- tolerating well IV Protonix slow hydrate Midodrine antibiotic coverage Subjective ROS Limited/Unobtainable: No Constitutional: Reports: malaise Objective Objective Last 24 Hour Vital Signs Date Time Temp Pulse Resp B/P (MAP) Pulse Ox O2 Delivery O2 Flow Rate FiO2 02/07/19 13:10 72 20 98 02/07/19 13:00 87 18 135/58 (83) 98 02/07/19 12:00 97.6 91 17 97/56 (70) 100 02/07/19 12:00 91 02/07/19 12:00 Room Air 02/07/19 11:00 80 18 123/60 (81) 100 02/07/19 10:00 76 16 145/56 (85) 99 02/07/19 09:00 76 20 131/83 (99) 99 02/07/19 08:00 76 02/07/19 08:00 Room Air 02/07/19 08:00 96.8 77 14 127/58 (81) 100 02/07/19 07:10 100 Nasal Cannula 2.0 28 02/07/19 07:10 Nasal Cannula 2.0 28 02/07/19 07:00 73 14 130/70 (90) 100 02/07/19 06:00 75 18 124/55 (78) 100 02/07/19 05:00 75 18 95/38 (57) 100 02/07/19 04:00 98.1 72 17 113/55 (74) 100 02/07/19 04:00 70 02/07/19 04:00 Nasal Cannula 2.0 02/07/19 03:00 72 18 110/52 (71) 100 02/07/19 02:00 73 18 104/48 (66) 100 02/07/19 01:00 73 18 104/74 (84) 100 02/07/19 00:00 Nasal Cannula 2.0 02/07/19 00:00 77 02/07/19 00:00 98.2 76 18 104/48 (66) 100 02/06/19 23:00 77 19 118/57 (77) 99 02/06/19 22:00 77 13 108/57 (74) 99 02/06/19 21:00 77 18 99/52 (68) 99 02/06/19 20:02 99 Nasal Cannula 2.0 28 02/06/19 20:02 Nasal Cannula 2.0 28 02/06/19 20:00 98.6 77 18 106/63 (77) 99 02/06/19 20:00 Nasal Cannula 2.0 02/06/19 20:00 77 02/06/19 19:00 83 18 110/55 (73) 100 02/06/19 18:00 84 18 105/60 (75) 100 02/06/19 17:00 83 13 115/59 (77) 100 02/06/19 16:30 84 15 96/55 (69) 99 02/06/19 16:15 84 14 93/55 (68) 99 02/06/19 16:00 82 02/06/19 16:00 97.6 84 14 98/59 (72) 100 02/06/19 16:00 Nasal Cannula 4.0 02/06/19 15:30 84 14 93/49 (64) 98 02/06/19 15:00 83 14 87/49 (62) 100 02/06/19 14:51 Nasal Cannula 4.0 02/06/19 14:30 84 15 88/42 (57) 100 02/06/19 14:00 85 19 91/53 (66) 100 Intake and Output 02/06/19 02/07/19 19:00 07:00 Intake Total 776.708 ml 930 ml Output Total 0 ml 0 ml Balance 776.708 ml 930 ml Intake Oral 30 ml 230 ml IV Total 746.708 ml 700 ml Output Urine Total 0 ml 0 ml Current Medications Medications (Trade) Dose Ordered Sig/Naa Route PRN Reason Start Time Stop Time Status Last Admin Dose Admin Acetaminophen (Tylenol) 650 mg Q6H PRN ORAL Mild Pain (Pain Scale 1-3) 02/06/19 16:15 03/08/19 16:14 Dextrose/Sodium Chloride 1,000 ml @ 50 mls/hr Q20H IV 02/06/19 13:22 03/08/19 13:21 02/07/19 08:39 Diphenhydramine HCl (Benadryl) 12.5 mg Q6H PRN IVP Itching/Pruritis 02/06/19 16:15 03/08/19 16:14 Heparin Sodium (Porcine) (Heparin 5000 units/ml) 5,000 units ONCE INJ 02/07/19 12:30 02/07/19 23:59 02/07/19 12:37 Heparin Sodium (Porcine) (Heparin) 1,000 unit ONCE INJ 02/07/19 12:30 02/07/19 23:59 Hydromorphone HCl (Dilaudid) 0.5 mg Q2H PRN IVP For Pain 02/06/19 16:15 02/13/19 16:14 02/07/19 08:46 Metoclopramide HCl (Reglan) 10 mg Q8HR IVP 02/07/19 09:46 03/09/19 09:45 02/07/19 13:01 Midodrine (Pro-Amatine) 10 mg THREE TIMES A DAY ORAL 02/06/19 18:00 03/08/19 17:59 02/07/19 12:37 Ondansetron HCl (Zofran) 4 mg Q6H PRN IVP Nausea & Vomiting 02/06/19 16:15 03/08/19 16:14 Pantoprazole (Protonix) 40 mg EVERY 12 HOURS IVP 02/06/19 21:00 03/08/19 20:59 02/07/19 08:39 Laboratory Tests 02/06/19 14:48: White Blood Count 17.4H, Red Blood Count 3.29L, Hemoglobin 10.5L, Hematocrit 32.3L, Mean Corpuscular Volume 98, Mean Corpuscular Hemoglobin 31.9H, Mean Corpuscular Hemoglobin Concent 32.5, Red Cell Distribution Width 15.0H, Platelet Count 90L, Mean Platelet Volume 7.7, Neutrophils (%) (Auto) , Lymphocytes (%) (Auto) , Monocytes (%) (Auto) , Eosinophils (%) (Auto) , Basophils (%) (Auto) , Differential Total Cells Counted 100, Neutrophils % ( Manual) 83H, Lymphocytes % (Manual) 6L, Monocytes % (Manual) 10, Eosinophils % ( Manual) 0, Basophils % (Manual) 0, Band Neutrophils 1, Platelet Estimate DecreasedL, Platelet Morphology Normal, Hypochromasia 1+, Anisocytosis 1+, Prothrombin Time 11.7H, Prothromb Time International Ratio 1.1, Activated Partial Thromboplast Time 30, Sodium Level 143, Potassium Level 4.2, Chloride Level 109H, Carbon Dioxide Level 20L, Anion Gap 14, Blood Urea Nitrogen 54H, Creatinine 13.3H, Estimat Glomerular Filtration Rate , Glucose Level 114H, Uric Acid 6.3, Calcium Level 7.0L, Phosphorus Level 7.8H, Total Bilirubin 1.7H, Direct Bilirubin 0.6H, Aspartate Amino Transf (AST/SGOT) 42H, Alanine Aminotransferase (ALT/SGPT) 35, Alkaline Phosphatase 195H, Total Protein 4.6L, Albumin 1.7L, Globulin 2.9, Albumin/Globulin Ratio 0.6L 02/06/19 21:45: White Blood Count 11.7H, Red Blood Count 3.02L, Hemoglobin 9.5L, Hematocrit 29.1L, Mean Corpuscular Volume 96, Mean Corpuscular Hemoglobin 31.5H, Mean Corpuscular Hemoglobin Concent 32.6, Red Cell Distribution Width 15.4H, Platelet Count 75L, Mean Platelet Volume 7.6, Neutrophils (%) (Auto) , Lymphocytes (%) (Auto) , Monocytes (%) (Auto) , Eosinophils (%) (Auto) , Basophils (%) (Auto) , Differential Total Cells Counted 100, Neutrophils % ( Manual) 79H, Lymphocytes % (Manual) 9L, Monocytes % (Manual) 11H, Eosinophils % (Manual) 0, Basophils % (Manual) 1, Band Neutrophils 0, Platelet Estimate DecreasedL, Platelet Morphology Normal, Hypochromasia 1+, Anisocytosis 1+, Sodium Level 140, Potassium Level 4.5, Chloride Level 107, Carbon Dioxide Level 20L, Anion Gap 13, Blood Urea Nitrogen 54H, Creatinine 13.4H, Estimat Glomerular Filtration Rate , Glucose Level 112H, Calcium Level 7.2L, Red Blood Cell Morphology 02/07/19 03:50: White Blood Count 8.4, Red Blood Count 3.07L, Hemoglobin 9.7L, Hematocrit 29.8L , Mean Corpuscular Volume 97, Mean Corpuscular Hemoglobin 31.6H, Mean Corpuscular Hemoglobin Concent 32.5, Red Cell Distribution Width 15.9H, Platelet Count 82L, Mean Platelet Volume 6.9, Neutrophils (%) (Auto) , Lymphocytes (%) (Auto) , Monocytes (%) (Auto) , Eosinophils (%) (Auto) , Basophils (%) (Auto) , Differential Total Cells Counted 100, Neutrophils % ( Manual) 69, Lymphocytes % (Manual) 25, Monocytes % (Manual) 6, Eosinophils % ( Manual) 0, Basophils % (Manual) 0, Band Neutrophils 0, Platelet Estimate DecreasedL, Platelet Morphology Normal, Anisocytosis 1+, Sodium Level 140, Potassium Level 4.7, Chloride Level 107, Carbon Dioxide Level 20L, Anion Gap 13 , Blood Urea Nitrogen 56H, Creatinine 13.7H, Estimat Glomerular Filtration Rate , Glucose Level 95, Calcium Level 7.4L, Phosphorus Level 9.3H, Total Bilirubin 0.8, Aspartate Amino Transf (AST/SGOT) 36, Alanine Aminotransferase (ALT/SGPT) 28, Alkaline Phosphatase 158H, Total Protein 5.4L, Albumin 2.4L, Globulin 3.0, Albumin/Globulin Ratio 0.8L, Hemoglobin A1c 5.5, Magnesium Level 2.8H, Iron Level 26L, Total Iron Binding Capacity 122L, Percent Iron Saturation 21, Unsaturated Iron Binding 96L, Ferritin 429H, Gamma Glutamyl Transpeptidase 83, Troponin I 0.034, C-Reactive Protein, Quantitative 7.4H, Pro-B-Type Natriuretic Peptide 51236O, Triglycerides Level 75, Cholesterol Level 84, LDL Cholesterol 31 , HDL Cholesterol 39L, Cholesterol/HDL Ratio 2.2L, Lipase 135, Vitamin B12 Level 520, Folate 48.0, Thyroid Stimulating Hormone (TSH) 0.836, Cortisol AM Sample 13.8, Random Gentamicin Level 7.2, Random Vancomycin Level 16.8 Height (Feet): 5 Height (Inches): 5.00 Weight (Pounds): 167 General Appearance: no apparent distress Neck: normal alignment Cardiovascular: normal rate Respiratory/Chest: decreased breath sounds Abdomen: distended Tyson Chaudhary MD Feb 07, 2019 13:33
[2019-02-07] MEDS ORDERED: Gentamicin 120mg/100ml NS INJ 100 ML IVPB ONE (13:45)
--- NOTE | 2019-02-07 13:48 | Surgery Progress Note ---
Surgery Progress Note Subjective Additional Comments doing better today. alert, awake, cooperative. states incisional discomfort. no n/v/f/c. not hungry. labs improved. receiving HD Objective Last 24 Hour Vital Signs Date Time Temp Pulse Resp B/P (MAP) Pulse Ox O2 Delivery O2 Flow Rate FiO2 02/07/19 13:10 72 20 98 02/07/19 13:00 87 18 135/58 (83) 98 02/07/19 12:00 97.6 91 17 97/56 (70) 100 02/07/19 12:00 91 02/07/19 12:00 Room Air 02/07/19 11:00 80 18 123/60 (81) 100 02/07/19 10:00 76 16 145/56 (85) 99 02/07/19 09:00 76 20 131/83 (99) 99 02/07/19 08:00 76 02/07/19 08:00 Room Air 02/07/19 08:00 96.8 77 14 127/58 (81) 100 02/07/19 07:10 100 Nasal Cannula 2.0 28 02/07/19 07:10 Nasal Cannula 2.0 28 02/07/19 07:00 73 14 130/70 (90) 100 02/07/19 06:00 75 18 124/55 (78) 100 02/07/19 05:00 75 18 95/38 (57) 100 02/07/19 04:00 98.1 72 17 113/55 (74) 100 02/07/19 04:00 70 02/07/19 04:00 Nasal Cannula 2.0 02/07/19 03:00 72 18 110/52 (71) 100 02/07/19 02:00 73 18 104/48 (66) 100 02/07/19 01:00 73 18 104/74 (84) 100 02/07/19 00:00 Nasal Cannula 2.0 02/07/19 00:00 77 02/07/19 00:00 98.2 76 18 104/48 (66) 100 02/06/19 23:00 77 19 118/57 (77) 99 02/06/19 22:00 77 13 108/57 (74) 99 02/06/19 21:00 77 18 99/52 (68) 99 02/06/19 20:02 99 Nasal Cannula 2.0 28 02/06/19 20:02 Nasal Cannula 2.0 28 02/06/19 20:00 98.6 77 18 106/63 (77) 99 02/06/19 20:00 Nasal Cannula 2.0 02/06/19 20:00 77 02/06/19 19:00 83 18 110/55 (73) 100 02/06/19 18:00 84 18 105/60 (75) 100 02/06/19 17:00 83 13 115/59 (77) 100 02/06/19 16:30 84 15 96/55 (69) 99 02/06/19 16:15 84 14 93/55 (68) 99 02/06/19 16:00 82 02/06/19 16:00 97.6 84 14 98/59 (72) 100 02/06/19 16:00 Nasal Cannula 4.0 02/06/19 15:30 84 14 93/49 (64) 98 02/06/19 15:00 83 14 87/49 (62) 100 02/06/19 14:51 Nasal Cannula 4.0 02/06/19 14:30 84 15 88/42 (57) 100 02/06/19 14:00 85 19 91/53 (66) 100 I&O Intake and Output 02/06/19 02/07/19 19:00 07:00 Intake Total 776.708 ml 930 ml Output Total 0 ml 0 ml Balance 776.708 ml 930 ml Intake Oral 30 ml 230 ml IV Total 746.708 ml 700 ml Output Urine Total 0 ml 0 ml Dressing: dry Wound: clean Drains: other Cardiovascular: RSR Respiratory: clear Abdomen: soft, distended, tenderness, decreased bowel sounds Extremities: no edema, no tenderness, no cyanosis Laboratory Tests Test 02/06/19 14:48 02/06/19 21:45 02/07/19 03:50 White Blood Count 17.4 K/UL (4.8-10.8) H 11.7 K/UL (4.8-10.8) H 8.4 K/UL (4.8-10.8) Red Blood Count 3.29 M/UL (4.70-6.10) L 3.02 M/UL (4.70-6.10) L 3.07 M/UL (4.70-6.10) L Hemoglobin 10.5 G/DL (14.2-18.0) L 9.5 G/DL (14.2-18.0) L 9.7 G/DL (14.2-18.0) L Hematocrit 32.3 % (42.0-52.0) L 29.1 % (42.0-52.0) L 29.8 % (42.0-52.0) L Mean Corpuscular Volume 98 FL (80-99) 96 FL (80-99) 97 FL (80-99) Mean Corpuscular Hemoglobin 31.9 PG (27.0-31.0) H 31.5 PG (27.0-31.0) H 31.6 PG (27.0-31.0) H Mean Corpuscular Hemoglobin Concent 32.5 G/DL (32.0-36.0) 32.6 G/DL (32.0-36.0) 32.5 G/DL (32.0-36.0) Red Cell Distribution Width 15.0 % (11.6-14.8) H 15.4 % (11.6-14.8) H 15.9 % (11.6-14.8) H Platelet Count 90 K/UL (150-450) L 75 K/UL (150-450) L 82 K/UL (150-450) L Mean Platelet Volume 7.7 FL (6.5-10.1) 7.6 FL (6.5-10.1) 6.9 FL (6.5-10.1) Neutrophils (%) (Auto) % (45.0-75.0) % (45.0-75.0) % (45.0-75.0) Lymphocytes (%) (Auto) % (20.0-45.0) % (20.0-45.0) % (20.0-45.0) Monocytes (%) (Auto) % (1.0-10.0) % (1.0-10.0) % (1.0-10.0) Eosinophils (%) (Auto) % (0.0-3.0) % (0.0-3.0) % (0.0-3.0) Basophils (%) (Auto) % (0.0-2.0) % (0.0-2.0) % (0.0-2.0) Differential Total Cells Counted 100 100 100 Neutrophils % (Manual) 83 % (45-75) H 79 % (45-75) H 69 % (45-75) Lymphocytes % (Manual) 6 % (20-45) L 9 % (20-45) L 25 % (20-45) Monocytes % (Manual) 10 % (1-10) 11 % (1-10) H 6 % (1-10) Eosinophils % (Manual) 0 % (0-3) 0 % (0-3) 0 % (0-3) Basophils % (Manual) 0 % (0-2) 1 % (0-2) 0 % (0-2) Band Neutrophils 1 % (0-8) 0 % (0-8) 0 % (0-8) Platelet Estimate Decreased L Decreased L Decreased L Platelet Morphology Normal Normal Normal Hypochromasia 1+ 1+ Anisocytosis 1+ 1+ 1+ Prothrombin Time 11.7 SEC (9.30-11.50) H Prothromb Time International Ratio 1.1 (0.9-1.1) Activated Partial Thromboplast Time 30 SEC (23-33) Sodium Level 143 MMOL/L (136-145) 140 MMOL/L (136-145) 140 MMOL/L (136-145) Potassium Level 4.2 MMOL/L (3.5-5.1) 4.5 MMOL/L (3.5-5.1) 4.7 MMOL/L (3.5-5.1) Chloride Level 109 MMOL/L (98-107) H 107 MMOL/L (98-107) 107 MMOL/L (98-107) Carbon Dioxide Level 20 MMOL/L (21-32) L 20 MMOL/L (21-32) L 20 MMOL/L (21-32) L Anion Gap 14 mmol/L (5-15) 13 mmol/L (5-15) 13 mmol/L (5-15) Blood Urea Nitrogen 54 mg/dL (7-18) H 54 mg/dL (7-18) H 56 mg/dL (7-18) H Creatinine 13.3 MG/DL (0.55-1.30) H 13.4 MG/DL (0.55-1.30) H 13.7 MG/DL (0.55-1.30) H Estimat Glomerular Filtration Rate mL/min (>60) mL/min (>60) mL/min (>60) Glucose Level 114 MG/DL (74-106) H 112 MG/DL (74-106) H 95 MG/DL (74-106) Uric Acid 6.3 MG/DL (2.6-7.2) Calcium Level 7.0 MG/DL (8.5-10.1) L 7.2 MG/DL (8.5-10.1) L 7.4 MG/DL (8.5-10.1) L Phosphorus Level 7.8 MG/DL (2.5-4.9) H 9.3 MG/DL (2.5-4.9) H Total Bilirubin 1.7 MG/DL (0.2-1.0) H 0.8 MG/DL (0.2-1.0) Direct Bilirubin 0.6 MG/DL (0.0-0.3) H Aspartate Amino Transf (AST/SGOT) 42 U/L (15-37) H 36 U/L (15-37) Alanine Aminotransferase (ALT/SGPT) 35 U/L (12-78) 28 U/L (12-78) Alkaline Phosphatase 195 U/L (46-116) H 158 U/L (46-116) H Total Protein 4.6 G/DL (6.4-8.2) L 5.4 G/DL (6.4-8.2) L Albumin 1.7 G/DL (3.4-5.0) L 2.4 G/DL (3.4-5.0) L Globulin 2.9 g/dL 3.0 g/dL Albumin/Globulin Ratio 0.6 (1.0-2.7) L 0.8 (1.0-2.7) L Red Blood Cell Morphology Hemoglobin A1c 5.5 % (4.3-6.0) Magnesium Level 2.8 MG/DL (1.8-2.4) H Iron Level 26 ug/dL (50-175) L Total Iron Binding Capacity 122 ug/dL (250-450) L Percent Iron Saturation 21 % (15-50) Unsaturated Iron Binding 96 ug/dL (112-346) L Ferritin 429 NG/ML (8-388) H Gamma Glutamyl Transpeptidase 83 U/L (5-85) Troponin I 0.034 ng/mL (0.000-0.056) C-Reactive Protein, Quantitative 7.4 mg/dL (0.00-0.90) H Pro-B-Type Natriuretic Peptide 22540 pg/mL (0-125) H Triglycerides Level 75 MG/DL (30-150) Cholesterol Level 84 MG/DL (< 200) LDL Cholesterol 31 mg/dL (<100) HDL Cholesterol 39 MG/DL (40-60) L Cholesterol/HDL Ratio 2.2 (3.3-4.4) L Lipase 135 U/L (73-393) Vitamin B12 Level 520 PG/ML (193-986) Folate 48.0 NG/ML (8.6-58.9) Thyroid Stimulating Hormone (TSH) 0.836 uiU/mL (0.358-3.740) Cortisol AM Sample 13.8 UG/DL Random Gentamicin Level 7.2 ug/mL Random Vancomycin Level 16.8 ug/mL Plan Problems: (1) ESRD (end stage renal disease) (2) S/p nephrectomy Assessment & Plan: recovering mild ileus labs improved receiving HD today okay for clears if desired. no need to push oral intake Rx as written HD as per nephrology ambulate and out of bed AM labs incentive spirometry (3) CAD (coronary artery disease) Maxi Chinchilla Feb 07, 2019 13:48
--- NOTE | 2019-02-07 14:12 | NUR ---
NURSE NOTES: Patient having lunch, son at bedside. No acute distress noted.
[2019-02-07] MEDS ORDERED: Vancomycin 500 MG in D5W 110 ML IVPB SCH (15:00)
[2019-02-07] MEDS ORDERED: Gentamicin inj 120 MG in NS 110 ML IVPB SCH (16:00)
--- NOTE | 2019-02-07 16:00 | Consultation ---
DATE OF CONSULTATION: 02/07/2019 INTERNAL MEDICINE CONSULTATION/HISTORY AND PHYSICAL: CONSULTING PHYSICIAN: Luis Maher M.D. HISTORY OF PRESENT ILLNESS: This is a 78-year-old male who has undergone laparoscopic left nephrectomy. He is known to have ESRD, CAD, and also a cardiac stent. He underwent nephrectomy and is now in ICU for postoperative management and care. The patient underwent left laparoscopic radical nephrectomy. At this time, the patient appears to be comfortable. He denies any active pain. Overnight, he has been seen by Nephrology as well and dialysis has been scheduled. ALLERGIES: To cephalexin, Levaquin, nitrofurantoin. MEDICATIONS: Allopurinol, Cardizem, Colace, vitamin D, lactulose, Pravachol, Renvela, Symbicort, and Flomax. SOCIAL HISTORY: He has been a smoker. Denies alcohol or tobacco use. PAST MEDICAL HISTORY: Notable for hyperuricemia, ESRD on CAPD, CAD, hyperlipidemia, COPD, and BPH. PHYSICAL EXAMINATION: GENERAL: Reveals a 78-year-old male. HEENT: Unremarkable. CHEST: Clear breath sounds bilaterally with decreased breath sounds at bases. ABDOMEN: Soft. EXTREMITIES: There is no edema. There is a Tenckhoff catheter in place. Surgical scar is noted. There is no edema. NEUROLOGIC: Nonfocal. LABORATORY DATA: His most recent labs showed hemoglobin 9.7, white count 8.4, platelet count is low 82,000. Chemistries notable for creatinine of 13.7, BUN 56. Remainder of labs unremarkable. The patient has elevation of phosphorus and magnesium consistent with his renal failure. Coags are normal. IMAGING STUDIES: X-ray chest has been obtained yesterday, which shows a temporary dialysis catheter in place, left jugular. Otherwise lungs are clear. IMPRESSION: 1. End-stage renal disease for dialysis. 2. Status post left nephrectomy. 3. CAD. 4. Hypertension. 5. Hyperlipidemia. 6. COPD. DISCUSSION: Admit to the ICU. Continue present medications and care. The patient will need empiric antibiotics after surgery. Pain control. Blood pressure control. Protonix, Zofran. IV fluids. Dialysis per Dr. Chaudhary. I will follow carefully as survival specialist and database architect. Luis Maher M.D. DR: AMILCAR JOB#: [id number] CC:
--- NOTE | 2019-02-07 16:17 | NUR ---
NURSE NOTES: Patient resting in bed comfortably. surgical site dressing intact, clean and dry. O2 sat 100% on RA.
--- NOTE | 2019-02-07 17:54 | NUR ---
NURSE NOTES: Encouraged patient to use incentive spirometer. Patient is able to return demo. vss
--- NOTE | 2019-02-07 19:00 | NUR ---
NURSE NOTES: patient c/o 7/10 abd pain at surgical site. prn pain med given.
--- NOTE | 2019-02-07 19:13 | NUR ---
HAND-OFF: Report given to SCOTT Delgado.
--- NOTE | 2019-02-07 19:30 | NUR ---
NURSE NOTES: Received the patient from SCOTT Shah. Patient is awake, alert and orientedx4, resting in bed. O2 sat 100% on Room air. SR noted on the monitor. no acute distress noted. Abdominal surgical site dressings intact, clean and dry. Patient noted with mild tenderness around surgical site. Left hand 20G and left forearm 22G intact and patent, running D5NS at 50ml/hr. Left IJ dialysis access intact dressing clean.Patient refusing SCD on bilateral lower extremities, offered 3times , explained the importance v/s risk and benefits per patient later. Encouraged to use incentive spirometer. Temp 99.0 oral. Instructed patient to use call light for assistance. Bed in lowest position, locked, side rails upx3, bed alarm on. Call light within reach. Will continue to monitor.
--- NOTE | 2019-02-07 21:30 | NUR ---
NURSE NOTES: patient in bed resting able to use call light to sit on the bedside. Patient trying to urinate using bedside urinal no urine output noted. frequent visual checks continued. will continue plan of care.
--- NOTE | 2019-02-07 23:30 | NUR ---
NURSE NOTES: patient in bed sleeping comfortably. no s/s of acute distress noted will continue plan of care.
[2019-02-08] VITALS (15 sets, daily range): BP systolic 95–147; BP diastolic 47–80
[2019-02-08] MEDS: Hydromorphone 0.5mg/0.5ml inj IVP PRN ×2 (00:06→03:53)
--- NOTE | 2019-02-08 00:30 | NUR ---
NURSE NOTES: Patient complained of 7/10 pain s/p left laparoscopic nephrectomy, repositioned, support with pillows, talk therapy provide not effective Dilaudid IVP given effective. Will continue plan of care.
[2019-02-08] MEDS ORDERED: Dyna-Hex 2% Top Sol 2oz TOPIC SCH ×2 (00:45→20:00)
--- NOTE | 2019-02-08 02:30 | NUR ---
NURSE NOTES: patient awake,alert able to make needs known to staff. complete linen change done. patient teaching provided regarding placing pillow on abdomen and support with both hands when coughing. S/P left laparoscopic nephrectomy, dressing dry and intact. noted with Peritoneal access on abdomen. call light within easy reach.
--- NOTE | 2019-02-08 04:00 | Operative Note - Dictated ---
DATE OF OPERATION: 02/06/2019 PREOPERATIVE DIAGNOSES: End-stage renal disease, left hydronephrosis, left renal mass, history of urosepsis. POSTOPERATIVE DIAGNOSES: End-stage renal disease, left hydronephrosis, left renal mass, history of urosepsis. OPERATION: Laparoscopic radical nephroureterectomy. OPERATED BY: Jericho Desai M.D. INSULATION BOARD HEAD SAW OPERATOR: Maxi Chinchilla M.D. FINDINGS: Xanthogranulomatous pyelonephritis, enlarged kidney and ureter with multiple stones. INDICATIONS FOR SURGERY: The patient has end-stage renal disease and history of renal stones. In the last several years, had multiple episodes of gross hematuria and urosepsis, was admitted to the hospital, treated with IV antibiotics. He is actually on peritoneal dialysis with end-stage renal disease. MRI showed some filling defects in the collecting system, and the retrograde pyelogram showed complete obstruction of the left ureter. Treatment options were discussed with him in great length including all potential complications. He understands the nature of the procedure. Also, discussed his case with Dr. Ousmane Guerra, his recruiter, and his son. He signed a consent. DESCRIPTION OF PROCEDURE: He was brought to the operating room. The patient was placed in left lateral decubital position, prepped and draped in standard fashion. Under general anesthesia, a subxiphoid 7 cm incision was made and hand port was placed into the abdomen. After that, 2 additional 12 mm trocars were placed. There were multiple intraabdominal adhesions that were broken down with sharp and blunt dissection as spleen was intimately adherent to those adhesions and there was some decapsulation of the spleen. Colon was retracted medially with sharp and blunt dissection. Spleen was very large and found to be with multiple abscesses. Did careful dissection of the ureter all the way down into the pelvic rim. The ureter was then transected with Endo-ROSELIA. Further dissection efforts with multiple difficulties. Using sharp and blunt dissection as well as multiple ROSELIA applications, from the posterior layers as well as renal pedicle. Renal pedicle was from the dense adhesions, which were also taken down with sharp and blunt dissection. A ROSELIA was used to excise the kidney pathologic examination. Bleeding was well controlled with Surgicel and FloSeal. There was no evidence of active bleeding. I invited Dr. Chinchilla to the case as a senior solutions consultant to look at the spleen as well as to help establish the planes between the spleen, kidney, and pancreas. He will dictate his operative report separately. After multiple hemostatic maneuvers, we confirmed that there was no evidence of active bleeding. Wound was copiously irrigated and suctioned. After that, the fascia was closed with 0 Vicryl and jaci for the skin. The patient was transferred to supine position and Dr. Chinchilla placed a dialysis catheter. Estimated blood loss was approximately 500 mL. Sponge count and instrument count were correct. Jericho Desai M.D. DR: CIARAN JOB#: [id number] CC:
--- NOTE | 2019-02-08 04:30 | NUR ---
NURSE NOTES: patient complained of 7/10 abd pain s/p left laparoscopic nephrectomy, repositioned in bed, pillow support provided, and talk therapy provided not effective. Dilaudid 0.5 mg IVP given effective. Frequent visual checks continued. Call light within easy reach.
[2019-02-08 05:02] LABS: HEMATOCRIT 29.6 % (42.0-52.0); HEMOGLOBIN 9.6 G/DL (14.2-18.0); MEAN CORPUSCULAR VOLUME 98 FL (80-99); PLATELET COUNT 85 K/UL (150-450); RED BLOOD COUNT 3.01 M/UL (4.70-6.10); RED CELL DISTRIBUTION WIDTH 15.8 % (11.6-14.8); WHITE BLOOD COUNT 13.1 K/UL (4.8-10.8)
[2019-02-08] MEDS: D5NS 1,000 ML IV SCH ×2 (05:12→12:04)
[2019-02-08] MEDS: Metoclopramide 10mg/2ml Inj IVP SCH ×3 (05:16→21:25)
[2019-02-08 05:37] LABS: ALANINE AMINOTRANSFERASE 29 U/L (12-78); ALBUMIN 2.9 G/DL (3.4-5.0); ALBUMIN/GLOBULIN RATIO 0.8 (1.0-2.7); ALKALINE PHOSPHATASE 151 U/L (46-116); ANION GAP 13 mmol/L (5-15); ASPARTATE AMINO TRANSFERASE 30 U/L (15-37); BILIRUBIN,TOTAL 0.9 MG/DL (0.2-1.0); BLOOD UREA NITROGEN 47 mg/dL (7-18); CARBON DIOXIDE 24 MMOL/L (21-32); CHLORIDE 103 MMOL/L (98-107); PHOSPHORUS 6.9 MG/DL (2.5-4.9); POTASSIUM 4.2 MMOL/L (3.5-5.1); SODIUM 140 MMOL/L (136-145)
--- NOTE | 2019-02-08 06:30 | NUR ---
NURSE NOTES: Patient in bed resting comfortably in bed. denies any pain or discomfort.no s/s of acute distress noted. will continue plan of care.
--- NOTE | 2019-02-08 07:30 | NUR ---
HAND-OFF: Report given to Erin CHAVEZ.
--- NOTE | 2019-02-08 07:47 | Pulmonology Progress Note ---
Assessment/Plan Assessment/Plan IMPRESSION: 1. End-stage renal disease for dialysis. 2. Status post left nephrectomy. 3. CAD. 4. Hypertension. 5. Hyperlipidemia. 6. COPD. 7. ESRD; s/p HD DISCUSSION: Transfer to med surg. Continue present medications and care. Pain control. Blood pressure control. Protonix, Zofran. IV fluids. Dialysis per Dr. Chaudhary. I will follow carefully as junior programmer. Luis Maher M.D. Subjective Interval Events: S/p HD yesterday; doing well Constitutional: Reports: no symptoms HEENT: Repors: no symptoms Respiratory: Reports: no symptoms Cardiovascular: Reports: no symptoms Gastrointestinal/Abdominal: Reports: no symptoms Genitourinary: Reports: no symptoms Neurologic: Reports: no symptoms Allergies: Coded Allergies: CEPHALEXIN (Verified Allergy, Intermediate, 12/26/18) ITCHING LEVOFLOXACIN (Verified Allergy, Intermediate, 12/26/18) ITCHING NITROFURANTOIN (Verified Allergy, Unknown, 12/25/18) Objective Last 24 Hour Vital Signs Date Time Temp Pulse Resp B/P (MAP) Pulse Ox O2 Delivery O2 Flow Rate FiO2 02/08/19 07:00 84 14 100/51 (67) 100 02/08/19 06:00 84 14 113/51 (71) 100 02/08/19 05:00 84 14 98/47 (64) 100 02/08/19 04:23 98.7 02/08/19 04:00 88 02/08/19 04:00 Room Air 02/08/19 04:00 99.0 84 14 95/47 (63) 100 02/08/19 03:00 81 16 97/75 (82) 100 02/08/19 02:00 81 16 126/63 (84) 100 02/08/19 01:00 85 16 105/53 (70) 100 02/08/19 00:00 Room Air 02/08/19 00:00 88 02/08/19 00:00 98.4 85 16 117/80 (92) 100 02/07/19 23:00 85 16 121/50 (73) 100 02/07/19 22:00 83 16 101/49 (66) 100 02/07/19 21:00 86 20 115/49 (71) 100 02/07/19 20:00 Room Air 02/07/19 20:00 99.0 86 20 100/49 (66) 100 02/07/19 20:00 85 02/07/19 19:00 86 20 106/59 (75) 100 02/07/19 18:00 90 22 129/55 (79) 100 02/07/19 17:00 90 22 101/73 (82) 100 02/07/19 16:00 98.2 87 17 115/55 (75) 99 02/07/19 16:00 Room Air 02/07/19 16:00 88 02/07/19 15:00 92 16 124/60 (81) 99 02/07/19 14:00 90 17 143/62 (89) 100 02/07/19 13:10 72 20 98 02/07/19 13:00 87 18 135/58 (83) 98 02/07/19 12:00 97.6 91 17 97/56 (70) 100 02/07/19 12:00 91 02/07/19 12:00 Room Air 02/07/19 11:00 80 18 123/60 (81) 100 02/07/19 10:00 76 16 145/56 (85) 99 02/07/19 09:00 76 20 131/83 (99) 99 02/07/19 08:00 76 02/07/19 08:00 Room Air 02/07/19 08:00 96.8 77 14 127/58 (81) 100 Intake and Output 02/07/19 02/08/19 19:00 07:00 Intake Total 962.000 ml 500 ml Output Total 0 ml 3 ml Balance 962.000 ml 497 ml Intake Oral 40 ml 0 ml IV Total 922.000 ml 500 ml Output Urine Total 0 ml 3 ml General Appearance: no acute distress HEENT: normocephalic Respiratory/Chest: chest wall non-tender, lungs clear Cardiovascular: normal peripheral pulses, normal rate Abdomen: normal bowel sounds, soft, non tender Extremities: no cyanosis Microbiology Date/Time Source Procedure Growth Status 02/06/19 06:43 Nasal Nares MRSA Culture - Final NO METHICILLIN RESISTANT STAPH AUREUS... Complete Laboratory Tests 02/08/19 04:00: White Blood Count 13.1#H, Red Blood Count 3.01L, Hemoglobin 9.6L, Hematocrit 29.6L, Mean Corpuscular Volume 98, Mean Corpuscular Hemoglobin 31.9H, Mean Corpuscular Hemoglobin Concent 32.5, Red Cell Distribution Width 15.8H, Platelet Count 85L, Mean Platelet Volume 8.3, Neutrophils (%) (Auto) , Lymphocytes (%) (Auto) , Monocytes (%) (Auto) , Eosinophils (%) (Auto) , Basophils (%) (Auto) , Neutrophils % (Manual) [Pending], Lymphocytes % (Manual) [Pending], Platelet Estimate [Pending], Platelet Morphology [Pending], Sodium Level 140, Potassium Level 4.2, Chloride Level 103, Carbon Dioxide Level 24, Anion Gap 13, Blood Urea Nitrogen 47H, Creatinine 12.0H, Estimat Glomerular Filtration Rate , Glucose Level 107H, Uric Acid 5.1, Calcium Level 8.0L, Phosphorus Level 6.9H, Magnesium Level 2.8H, Total Bilirubin 0.9, Aspartate Amino Transf (AST/SGOT) 30, Alanine Aminotransferase (ALT/SGPT) 29, Alkaline Phosphatase 151H, C-Reactive Protein, Quantitative 30.1H, Pro-B-Type Natriuretic Peptide 42205Q, Total Protein 6.4, Albumin 2.9L, Globulin 3.5, Albumin/Globulin Ratio 0.8L, Random Gentamicin Level 9.4, Random Vancomycin Level 18.3 Current Medications Medications (Trade) Dose Ordered Sig/Naa Route PRN Reason Start Time Stop Time Status Last Admin Dose Admin Acetaminophen (Tylenol) 650 mg Q6H PRN ORAL Mild Pain (Pain Scale 1-3) 02/06/19 16:15 03/08/19 16:14 Chlorhexidine Gluconate (Tamika-Hex 2%) 1 applic DAILY@2000 TOPIC 02/08/19 20:00 03/10/19 19:59 Dextrose/Sodium Chloride 1,000 ml @ 50 mls/hr Q20H IV 02/06/19 13:22 03/08/19 13:21 02/08/19 05:12 Diphenhydramine HCl (Benadryl) 12.5 mg Q6H PRN IVP Itching/Pruritis 02/06/19 16:15 03/08/19 16:14 Hydromorphone HCl (Dilaudid) 0.5 mg Q2H PRN IVP For Pain 02/06/19 16:15 02/13/19 16:14 02/08/19 03:53 Metoclopramide HCl (Reglan) 10 mg Q8HR IVP 02/07/19 09:46 03/09/19 09:45 02/08/19 05:16 Midodrine (Pro-Amatine) 10 mg THREE TIMES A DAY ORAL 02/06/19 18:00 03/08/19 17:59 02/07/19 17:10 Ondansetron HCl (Zofran) 4 mg Q6H PRN IVP Nausea & Vomiting 02/06/19 16:15 03/08/19 16:14 Pantoprazole (Protonix) 40 mg EVERY 12 HOURS IVP 02/06/19 21:00 03/08/19 20:59 02/07/19 21:20 Luis Maher MD Feb 08, 2019 07:47
--- NOTE | 2019-02-08 08:00 | NUR ---
NURSE NOTES: A&O x4. residential monitor showing SR. On room air saturating 100%. Denies pain or discomfort at this time. Clear liquid diet. Surgical site dry intact. L IJ dialysis cath. L hand 20. D5NS at 50 cc/hr. Dr. Maher at bedside - no new orders at this time. Patient able to sit bedside and self position himself back to bed. No fever. Vital signs stable. Bed alarm on for safety. Incentive spirometer at bedside - instructed to use - demonstrated proper technique. Will continue plan of care.
--- NOTE | 2019-02-08 10:00 | NUR ---
NURSE NOTES: Patient able to self reposition. RT at bedside. Tolerating weight bearing well. No distress noted. Will continue plan of care.
[2019-02-08] MEDS: Midodrine 10mg tab ORAL SCH ×3 (10:16→18:44)
[2019-02-08] MEDS: Pantoprazole Inj IVP SCH ×2 (10:16→20:18)
--- NOTE | 2019-02-08 11:03 | Nephrology Progress Note ---
Assessment/Plan Problem List: (1) ESRD (end stage renal disease) (2) S/p nephrectomy (3) CAD (coronary artery disease) (4) Smoker Plan HD in am again IV Protonix slow hydrate Midodrine antibiotic coverage has Vanco and Micaa on board Subjective Constitutional: Reports: malaise Objective Objective Last 24 Hour Vital Signs Date Time Temp Pulse Resp B/P (MAP) Pulse Ox O2 Delivery O2 Flow Rate FiO2 02/08/19 10:00 87 15 125/65 (85) 100 02/08/19 09:00 88 15 118/60 (79) 100 02/08/19 08:00 99.0 86 14 115/58 (77) 100 02/08/19 08:00 Room Air 02/08/19 08:00 86 02/08/19 07:00 84 14 100/51 (67) 100 02/08/19 06:00 84 14 113/51 (71) 100 02/08/19 05:00 84 14 98/47 (64) 100 02/08/19 04:23 98.7 02/08/19 04:00 88 02/08/19 04:00 Room Air 02/08/19 04:00 99.0 84 14 95/47 (63) 100 02/08/19 03:00 81 16 97/75 (82) 100 02/08/19 02:00 81 16 126/63 (84) 100 02/08/19 01:00 85 16 105/53 (70) 100 02/08/19 00:00 Room Air 02/08/19 00:00 88 02/08/19 00:00 98.4 85 16 117/80 (92) 100 02/07/19 23:00 85 16 121/50 (73) 100 02/07/19 22:00 83 16 101/49 (66) 100 02/07/19 21:00 86 20 115/49 (71) 100 02/07/19 20:00 Room Air 02/07/19 20:00 99.0 86 20 100/49 (66) 100 02/07/19 20:00 85 02/07/19 19:00 86 20 106/59 (75) 100 02/07/19 18:00 90 22 129/55 (79) 100 02/07/19 17:00 90 22 101/73 (82) 100 02/07/19 16:00 98.2 87 17 115/55 (75) 99 02/07/19 16:00 Room Air 02/07/19 16:00 88 02/07/19 15:00 92 16 124/60 (81) 99 02/07/19 14:00 90 17 143/62 (89) 100 02/07/19 13:10 72 20 98 02/07/19 13:00 87 18 135/58 (83) 98 02/07/19 12:00 97.6 91 17 97/56 (70) 100 02/07/19 12:00 91 02/07/19 12:00 Room Air Intake and Output 02/07/19 02/08/19 19:00 07:00 Intake Total 962.000 ml 590 ml Output Total 0 ml 3 ml Balance 962.000 ml 587 ml Intake Oral 40 ml 0 ml IV Total 922.000 ml 590 ml Output Urine Total 0 ml 3 ml Laboratory Tests 02/08/19 04:00: White Blood Count 13.1#H, Red Blood Count 3.01L, Hemoglobin 9.6L, Hematocrit 29.6L, Mean Corpuscular Volume 98, Mean Corpuscular Hemoglobin 31.9H, Mean Corpuscular Hemoglobin Concent 32.5, Red Cell Distribution Width 15.8H, Platelet Count 85L, Mean Platelet Volume 8.3, Neutrophils (%) (Auto) , Lymphocytes (%) (Auto) , Monocytes (%) (Auto) , Eosinophils (%) (Auto) , Basophils (%) (Auto) , Differential Total Cells Counted 100, Neutrophils % ( Manual) 82H, Lymphocytes % (Manual) 11L, Monocytes % (Manual) 7, Eosinophils % ( Manual) 0, Basophils % (Manual) 0, Band Neutrophils 0, Platelet Estimate DecreasedL, Platelet Morphology Normal, Anisocytosis 1+, Sodium Level 140, Potassium Level 4.2, Chloride Level 103, Carbon Dioxide Level 24, Anion Gap 13, Blood Urea Nitrogen 47H, Creatinine 12.0H, Estimat Glomerular Filtration Rate , Glucose Level 107H, Uric Acid 5.1, Calcium Level 8.0L, Phosphorus Level 6.9H, Magnesium Level 2.8H, Total Bilirubin 0.9, Aspartate Amino Transf (AST/SGOT) 30 , Alanine Aminotransferase (ALT/SGPT) 29, Alkaline Phosphatase 151H, C-Reactive Protein, Quantitative 30.1H, Pro-B-Type Natriuretic Peptide 53005C, Total Protein 6.4, Albumin 2.9L, Globulin 3.5, Albumin/Globulin Ratio 0.8L, Random Gentamicin Level 9.4, Random Vancomycin Level 18.3 Height (Feet): 5 Height (Inches): 5.00 Weight (Pounds): 166 General Appearance: no apparent distress Neck: normal alignment Cardiovascular: normal rate Respiratory/Chest: decreased breath sounds Abdomen: distended Tyson Chaudhary MD Feb 08, 2019 11:03
--- NOTE | 2019-02-08 11:20 | NUR ---
MEMBER OF CONGRESSTECHNOLOGY PROFESSIONAL SI:ESRD . S/P NEPHRECTOMY VS: BP 98/47, P 88, T 99.0, RR 15, SpO2 100 WBC 13.1, RBC 3.01, Hgb 9.6. Hct 29.6, BUN 47, CR 12.0 IS:REGLAN 10mg IVP PROTONIX 40mg IVP MIDODRINE 10mg DILAUDID 0.5mg D5/NS x1L IV PLAN: INCENTIVE SPIROMETRY ICU STATUS
--- NOTE | 2019-02-08 11:25 | NUR ---
TRANSFER TO FLOOR: Patient transferred to Med Surg 310-1, per hospital bed. Report given to SCOTT Silva using sbar. Belongings and medications given to RN. Family and or S/O informed of transfer.
[2019-02-08] MEDS ORDERED: DiphenhydrAMINE 50mg/ml Inj IVP PRN (11:30)
--- NOTE | 2019-02-08 11:34 | NUR ---
NURSE NOTES: Received report from Reglai RN. Patient transferred to at 1115 in stable condition. No acute distress noted, patient denies pain. Left hand IV intact and asymptomatic. Left EJ intact, dressing clean, dry, intact. Patient belongings accounted for. Patient stood up and ambulated with steady gait. Patient educated to call for assistance before getting out of bed but gets up without assistance. Charge nurse aware and patient placed in room adjacent to nursing station for frequent monitoring. Side rails upx3, bed low and locked, call light in reach. Will continue to monitor.
--- NOTE | 2019-02-08 12:22 | NUR ---
NURSE NOTES: Abdominal dressings changed at bedside by Dr. Chinchilla. Surgical wounds clean and dry, no signs of infection noted.
--- NOTE | 2019-02-08 13:08 | Surgery Progress Note ---
Surgery Progress Note Subjective Additional Comments no acute events. feels better today. mild pain. no n/v/f/c. no flatus or BM yet Objective Last 24 Hour Vital Signs Date Time Temp Pulse Resp B/P (MAP) Pulse Ox O2 Delivery O2 Flow Rate FiO2 02/08/19 11:00 85 15 130/68 (88) 100 02/08/19 10:00 87 15 125/65 (85) 100 02/08/19 09:00 88 15 118/60 (79) 100 02/08/19 08:00 99.0 86 14 115/58 (77) 100 02/08/19 08:00 Room Air 02/08/19 08:00 86 02/08/19 07:00 84 14 100/51 (67) 100 02/08/19 06:00 84 14 113/51 (71) 100 02/08/19 05:00 84 14 98/47 (64) 100 02/08/19 04:23 98.7 02/08/19 04:00 88 02/08/19 04:00 Room Air 02/08/19 04:00 99.0 84 14 95/47 (63) 100 02/08/19 03:00 81 16 97/75 (82) 100 02/08/19 02:00 81 16 126/63 (84) 100 02/08/19 01:00 85 16 105/53 (70) 100 02/08/19 00:00 Room Air 02/08/19 00:00 88 02/08/19 00:00 98.4 85 16 117/80 (92) 100 02/07/19 23:00 85 16 121/50 (73) 100 02/07/19 22:00 83 16 101/49 (66) 100 02/07/19 21:00 86 20 115/49 (71) 100 02/07/19 20:00 Room Air 02/07/19 20:00 99.0 86 20 100/49 (66) 100 02/07/19 20:00 85 02/07/19 19:00 86 20 106/59 (75) 100 02/07/19 18:00 90 22 129/55 (79) 100 02/07/19 17:00 90 22 101/73 (82) 100 02/07/19 16:00 98.2 87 17 115/55 (75) 99 02/07/19 16:00 Room Air 02/07/19 16:00 88 02/07/19 15:00 92 16 124/60 (81) 99 02/07/19 14:00 90 17 143/62 (89) 100 02/07/19 13:10 72 20 98 I&O Intake and Output 02/07/19 02/08/19 19:00 07:00 Intake Total 962.000 ml 590 ml Output Total 0 ml 3 ml Balance 962.000 ml 587 ml Intake Oral 40 ml 0 ml IV Total 922.000 ml 590 ml Output Urine Total 0 ml 3 ml Dressing: saturated Wound: clean Drains: other Cardiovascular: RSR Respiratory: clear Abdomen: soft, distended, tenderness, decreased bowel sounds Extremities: no tenderness, no cyanosis Laboratory Tests Test 02/08/19 04:00 White Blood Count 13.1 K/UL (4.8-10.8) #H Red Blood Count 3.01 M/UL (4.70-6.10) L Hemoglobin 9.6 G/DL (14.2-18.0) L Hematocrit 29.6 % (42.0-52.0) L Mean Corpuscular Volume 98 FL (80-99) Mean Corpuscular Hemoglobin 31.9 PG (27.0-31.0) H Mean Corpuscular Hemoglobin Concent 32.5 G/DL (32.0-36.0) Red Cell Distribution Width 15.8 % (11.6-14.8) H Platelet Count 85 K/UL (150-450) L Mean Platelet Volume 8.3 FL (6.5-10.1) Neutrophils (%) (Auto) % (45.0-75.0) Lymphocytes (%) (Auto) % (20.0-45.0) Monocytes (%) (Auto) % (1.0-10.0) Eosinophils (%) (Auto) % (0.0-3.0) Basophils (%) (Auto) % (0.0-2.0) Differential Total Cells Counted 100 Neutrophils % (Manual) 82 % (45-75) H Lymphocytes % (Manual) 11 % (20-45) L Monocytes % (Manual) 7 % (1-10) Eosinophils % (Manual) 0 % (0-3) Basophils % (Manual) 0 % (0-2) Band Neutrophils 0 % (0-8) Platelet Estimate Decreased L Platelet Morphology Normal Anisocytosis 1+ Sodium Level 140 MMOL/L (136-145) Potassium Level 4.2 MMOL/L (3.5-5.1) Chloride Level 103 MMOL/L (98-107) Carbon Dioxide Level 24 MMOL/L (21-32) Anion Gap 13 mmol/L (5-15) Blood Urea Nitrogen 47 mg/dL (7-18) H Creatinine 12.0 MG/DL (0.55-1.30) H Estimat Glomerular Filtration Rate mL/min (>60) Glucose Level 107 MG/DL (74-106) H Uric Acid 5.1 MG/DL (2.6-7.2) Calcium Level 8.0 MG/DL (8.5-10.1) L Phosphorus Level 6.9 MG/DL (2.5-4.9) H Magnesium Level 2.8 MG/DL (1.8-2.4) H Total Bilirubin 0.9 MG/DL (0.2-1.0) Aspartate Amino Transf (AST/SGOT) 30 U/L (15-37) Alanine Aminotransferase (ALT/SGPT) 29 U/L (12-78) Alkaline Phosphatase 151 U/L (46-116) H C-Reactive Protein, Quantitative 30.1 mg/dL (0.00-0.90) H Pro-B-Type Natriuretic Peptide 29716 pg/mL (0-125) H Total Protein 6.4 G/DL (6.4-8.2) Albumin 2.9 G/DL (3.4-5.0) L Globulin 3.5 g/dL Albumin/Globulin Ratio 0.8 (1.0-2.7) L Random Gentamicin Level 9.4 ug/mL Random Vancomycin Level 18.3 ug/mL Plan Problems: (1) ESRD (end stage renal disease) (2) S/p nephrectomy Assessment & Plan: recovering mild ileus labs improved okay for clears if desired. no need to push oral intake Rx as written HD as per nephrology ambulate and out of bed AM labs incentive spirometry awaiting return of bowel function (3) CAD (coronary artery disease) Maxi Chinchilla Feb 08, 2019 13:08
[2019-02-08] MEDS ORDERED: AMOXICILLIN500 MG ORAL (13:34)
--- NOTE | 2019-02-08 16:38 | NUR ---
SOLUTIONS ENGINEER NOTES SPOKE WITH PT'S SON, [facility] PLACED A CALL TO [facility] INTAKE @ [phone] MESSAGE LEFT. HEPATITIS PANEL ORDERED. MADE AWARE. WILL FOLLOW UP. ENDORSED TO WEEKEND NCM FOR FOLLOW UP.
[2019-02-08] MEDS: Docusate 100mg cap ORAL SCH (18:44)
--- NOTE | 2019-02-08 19:14 | NUR ---
HAND-OFF: Report given to Horacio CHAVEZ. Patient is in stable condition.
--- NOTE | 2019-02-08 19:30 | NUR ---
NURSE NOTES: Received report from SCOTT Silva and rounds made. Pt in bed asleep, no distress noted. Surgical dressing C/D/I. IV patent and intact. IV fluid infusing as ordered. Bed in lowest position and locked, side rails up x 2, bed alarm on, call light within reach. Will continue to monitor.
[2019-02-08] MEDS: Dyna-Hex 2% Top Sol 2oz TOPIC SCH (20:18)
[2019-02-09] VITALS: BP 120/59
[2019-02-09 04:00] VITALS: BP_SYST 127; BP_SYST 146; BP_DIAS 64; BP_DIAS 98
[2019-02-09] MEDS: Metoclopramide 10mg/2ml Inj IVP SCH (05:23)
[2019-02-09] MEDS: D5NS 1,000 ML IV SCH (05:26)
[2019-02-09 06:58] LABS: HEMATOCRIT 24.6 % (42.0-52.0); MEAN CORPUSCULAR VOLUME 98 FL (80-99); PLATELET COUNT 69 K/UL (150-450); RED BLOOD COUNT 2.52 M/UL (4.70-6.10); RED CELL DISTRIBUTION WIDTH 15.1 % (11.6-14.8); WHITE BLOOD COUNT 8.8 K/UL (4.8-10.8)
[2019-02-09 07:14] LABS: ALANINE AMINOTRANSFERASE 25 U/L (12-78); ALBUMIN 2.3 G/DL (3.4-5.0); ALBUMIN/GLOBULIN RATIO 0.7 (1.0-2.7); ALKALINE PHOSPHATASE 148 U/L (46-116); ANION GAP 12 mmol/L (5-15); ASPARTATE AMINO TRANSFERASE 32 U/L (15-37); BILIRUBIN,TOTAL 0.8 MG/DL (0.2-1.0); BLOOD UREA NITROGEN 56 mg/dL (7-18); CALCIUM 7.9 MG/DL (8.5-10.1); CARBON DIOXIDE 24 MMOL/L (21-32); CHLORIDE 105 MMOL/L (98-107); CREATININE 13.7 MG/DL (0.55-1.30); PHOSPHORUS 7.3 MG/DL (2.5-4.9); POTASSIUM 4.6 MMOL/L (3.5-5.1); SODIUM 141 MMOL/L (136-145)
--- NOTE | 2019-02-09 07:27 | NUR ---
HAND-OFF: Report given to SCOTT Felipe. Pt in stable condition.
--- NOTE | 2019-02-09 07:38 | NUR ---
NURSE NOTES: Safety measures implemented. Per outgoing nurse pt walks with blanket on his head, will monitor for safety. Dialysis is pending foe today. Labs in for hemoglobin 8.0. 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
[2019-02-09 08:00] VITALS: BP 137/67
[2019-02-09] MEDS: Pantoprazole Inj IVP SCH ×2 (08:20→20:23)
[2019-02-09] MEDS: Midodrine 10mg tab ORAL SCH ×3 (08:20→17:31)
[2019-02-09] MEDS: Docusate 100mg cap ORAL SCH ×2 (08:20→17:31)
[2019-02-09] MEDS: Hydromorphone 0.5mg/0.5ml inj IVP PRN ×2 (08:28→12:37)
--- NOTE | 2019-02-09 08:31 | NUR ---
NURSE NOTES: Pt bowels sounds present, guarded during assessment of abdomen. Unable to determine if it is firm to touch. Denies having a bowel movement in 2-3 days. Refused laxative. States he has not eaten. Is not passing flatus per pt. " I have not eaten to poo, or do that, no pee in 3 months" Current plan of are will followed. Dialysis pending at this time.
--- NOTE | 2019-02-09 09:08 | NUR ---
NURSE NOTES: Dr Desai called for an update on pt. Informed about Positive VRE TO RECTUM . Provided Dr Desai with, pertinent lab values to include low hemoglobin at 8.0 and wbc count which has improved. Charge Nurse made aware of microbiology report. Dialysis nurse called stated she will arrive around 1pm. Informed of morning blood pressure result 137/67. Current plan of care will be followed
[2019-02-09] MEDS ORDERED: NS 275ml ONE (09:44)
[2019-02-09] MEDS ORDERED: Tubing IV Secondary IV ONE (09:44)
[2019-02-09] MEDS ORDERED: D5NS 1000ml IV ONE (09:44)
--- NOTE | 2019-02-09 11:39 | NUR ---
NURSE NOTES: Pt up with physical therapy tolerated well . Dr Rdz here seen pt , state he will observe pt prior to discontinuing IV fluids
[2019-02-09 11:45] VITALS: BP 121/69
--- NOTE | 2019-02-09 13:09 | Nephrology Progress Note ---
Assessment/Plan Problem List: (1) ESRD (end stage renal disease) (2) S/p nephrectomy (3) CAD (coronary artery disease) (4) Smoker Plan HD today IV Protonix stop hydrate Midodrine antibiotic coverage has Vanco and Genta on board DC planning- OP HD placement Phos binders Subjective ROS Limited/Unobtainable: No Constitutional: Reports: weakness Objective Objective Last 24 Hour Vital Signs Date Time Temp Pulse Resp B/P (MAP) Pulse Ox O2 Delivery O2 Flow Rate FiO2 02/09/19 11:45 97.5 80 17 121/69 (86) 95 02/09/19 08:00 97.8 87 17 137/67 (90) 97 02/09/19 06:55 Room Air 02/09/19 06:55 98 Room Air 21 02/09/19 04:00 97.2 86 20 127/64 (85) 96 02/09/19 00:00 99.1 85 20 120/59 (79) 96 02/08/19 21:00 Room Air 02/08/19 20:00 99.5 91 20 147/64 (91) 96 02/08/19 16:00 98.7 100 20 141/66 (91) 98 Intake and Output 02/08/19 02/09/19 19:00 07:00 Intake Total 720 ml 650 ml Output Total 0 ml 0 ml Balance 720 ml 650 ml Intake Oral 370 ml 100 ml IV Total 350 ml 550 ml Output Urine Total 0 ml 0 ml Laboratory Tests 02/08/19 17:00: Hepatitis B Surface Antigen [Pending], Hepatitis B Surface Antibody, Quant [ Pending], Hepatitis C Antibody [Pending] 02/09/19 05:05: White Blood Count 8.8, Red Blood Count 2.52L, Hemoglobin 8.0L, Hematocrit 24.6L , Mean Corpuscular Volume 98, Mean Corpuscular Hemoglobin 31.7H, Mean Corpuscular Hemoglobin Concent 32.5, Red Cell Distribution Width 15.1H, Platelet Count 69L, Mean Platelet Volume 7.3, Neutrophils (%) (Auto) , Lymphocytes (%) (Auto) , Monocytes (%) (Auto) , Eosinophils (%) (Auto) , Basophils (%) (Auto) , Differential Total Cells Counted 100, Neutrophils % ( Manual) 74, Lymphocytes % (Manual) 12L, Monocytes % (Manual) 13H, Eosinophils % (Manual) 1, Basophils % (Manual) 0, Band Neutrophils 0, Platelet Estimate DecreasedL, Platelet Morphology Normal, Anisocytosis 1+, Macrocytosis 1+, Sodium Level 141, Potassium Level 4.6, Chloride Level 105, Carbon Dioxide Level 24, Anion Gap 12, Blood Urea Nitrogen 56H, Creatinine 13.7H, Estimat Glomerular Filtration Rate , Glucose Level 96, Calcium Level 7.9L, Phosphorus Level 7.3H, Magnesium Level 2.8H, Total Bilirubin 0.8, Aspartate Amino Transf (AST/SGOT) 32 , Alanine Aminotransferase (ALT/SGPT) 25, Alkaline Phosphatase 148H, C-Reactive Protein, Quantitative 31.6H, Pro-B-Type Natriuretic Peptide 58328Q, Total Protein 5.6L, Albumin 2.3L, Globulin 3.3, Albumin/Globulin Ratio 0.7L Height (Feet): 5 Height (Inches): 5.00 Weight (Pounds): 169 General Appearance: no apparent distress Cardiovascular: normal rate Respiratory/Chest: lungs clear Abdomen: soft Tyson Chaudhary MD Feb 09, 2019 13:09
--- NOTE | 2019-02-09 13:10 | Surgery Progress Note ---
Surgery Progress Note Subjective Additional Comments afebrile, HD stable, labs noted. leukocytosis resolved. feels better today. ambulatory. no flatus or BM yet. Objective Last 24 Hour Vital Signs Date Time Temp Pulse Resp B/P (MAP) Pulse Ox O2 Delivery O2 Flow Rate FiO2 02/09/19 11:45 97.5 80 17 121/69 (86) 95 02/09/19 08:00 97.8 87 17 137/67 (90) 97 02/09/19 06:55 Room Air 02/09/19 06:55 98 Room Air 21 02/09/19 04:00 97.2 86 20 127/64 (85) 96 02/09/19 00:00 99.1 85 20 120/59 (79) 96 02/08/19 21:00 Room Air 02/08/19 20:00 99.5 91 20 147/64 (91) 96 02/08/19 16:00 98.7 100 20 141/66 (91) 98 I&O Intake and Output 02/08/19 02/09/19 19:00 07:00 Intake Total 720 ml 650 ml Output Total 0 ml 0 ml Balance 720 ml 650 ml Intake Oral 370 ml 100 ml IV Total 350 ml 550 ml Output Urine Total 0 ml 0 ml Dressing: dry Wound: clean Drains: none Cardiovascular: RSR Respiratory: clear Abdomen: soft, distended, non-tender, decreased bowel sounds Extremities: no tenderness, no cyanosis Laboratory Tests Test 02/08/19 17:00 02/09/19 05:05 Hepatitis B Surface Antigen Pending Hepatitis B Surface Antibody, Quant Pending Hepatitis C Antibody Pending White Blood Count 8.8 K/UL (4.8-10.8) Red Blood Count 2.52 M/UL (4.70-6.10) L Hemoglobin 8.0 G/DL (14.2-18.0) L Hematocrit 24.6 % (42.0-52.0) L Mean Corpuscular Volume 98 FL (80-99) Mean Corpuscular Hemoglobin 31.7 PG (27.0-31.0) H Mean Corpuscular Hemoglobin Concent 32.5 G/DL (32.0-36.0) Red Cell Distribution Width 15.1 % (11.6-14.8) H Platelet Count 69 K/UL (150-450) L Mean Platelet Volume 7.3 FL (6.5-10.1) Neutrophils (%) (Auto) % (45.0-75.0) Lymphocytes (%) (Auto) % (20.0-45.0) Monocytes (%) (Auto) % (1.0-10.0) Eosinophils (%) (Auto) % (0.0-3.0) Basophils (%) (Auto) % (0.0-2.0) Differential Total Cells Counted 100 Neutrophils % (Manual) 74 % (45-75) Lymphocytes % (Manual) 12 % (20-45) L Monocytes % (Manual) 13 % (1-10) H Eosinophils % (Manual) 1 % (0-3) Basophils % (Manual) 0 % (0-2) Band Neutrophils 0 % (0-8) Platelet Estimate Decreased L Platelet Morphology Normal Anisocytosis 1+ Macrocytosis 1+ Sodium Level 141 MMOL/L (136-145) Potassium Level 4.6 MMOL/L (3.5-5.1) Chloride Level 105 MMOL/L (98-107) Carbon Dioxide Level 24 MMOL/L (21-32) Anion Gap 12 mmol/L (5-15) Blood Urea Nitrogen 56 mg/dL (7-18) H Creatinine 13.7 MG/DL (0.55-1.30) H Estimat Glomerular Filtration Rate mL/min (>60) Glucose Level 96 MG/DL (74-106) Calcium Level 7.9 MG/DL (8.5-10.1) L Phosphorus Level 7.3 MG/DL (2.5-4.9) H Magnesium Level 2.8 MG/DL (1.8-2.4) H Total Bilirubin 0.8 MG/DL (0.2-1.0) Aspartate Amino Transf (AST/SGOT) 32 U/L (15-37) Alanine Aminotransferase (ALT/SGPT) 25 U/L (12-78) Alkaline Phosphatase 148 U/L (46-116) H C-Reactive Protein, Quantitative 31.6 mg/dL (0.00-0.90) H Pro-B-Type Natriuretic Peptide 58723 pg/mL (0-125) H Total Protein 5.6 G/DL (6.4-8.2) L Albumin 2.3 G/DL (3.4-5.0) L Globulin 3.3 g/dL Albumin/Globulin Ratio 0.7 (1.0-2.7) L Plan Problems: (1) ESRD (end stage renal disease) (2) S/p nephrectomy Assessment & Plan: recovering mild ileus labs improved okay for clears if desired. no need to push oral intake Rx as written HD as per nephrology ambulate and out of bed AM labs incentive spirometry awaiting return of bowel function (3) CAD (coronary artery disease) Maxi Chinchilla Feb 09, 2019 13:10
[2019-02-09] MEDS ORDERED: Hydromorphone 0.5mg/0.5ml inj IVP PRN (13:15)
--- NOTE | 2019-02-09 14:27 | NUR ---
NURSE NOTES: Dr Camarena phoned per request of dialysis nurse, per nurse edgardo catheter is not functioning properly. Dialysis flow rate slowed.
[2019-02-09] MEDS ORDERED: Cathflo Alteplase 2mg Inj INJ ONE (14:30)
--- NOTE | 2019-02-09 14:58 | NUR ---
NURSE NOTES: Dialysis nurse completed dialyzing output 500 . Pt stable currently sleeping
[2019-02-09 15:45] VITALS: BP 117/60
--- NOTE | 2019-02-09 19:38 | NUR ---
HAND-OFF: Report given to Leeann CHAVEZ.
--- NOTE | 2019-02-09 19:39 | NUR ---
NURSE NOTES: Received report & pt from SCOTT Felipe. Pt lying in bed, a&ox4, in room air. No s/s of acute distress & no c/o pain at this time. Pt + for VRE rectum & house sup aware per AM RN report & no beds available upstairs. Peritoneal cath noted. Surgicla dressing C/D/I. Lef IJ alonso cath intact. IV site intact/asymptomatic & S/L'd. HD was done today with 500mls out per report & also Dr. Chaudhary aware that alonso cath not functioning properly. Bed in lowest position, call light within reach. Will continue to monitor.
[2019-02-09 20:00] VITALS: BP 122/52
[2019-02-09] MEDS: Dyna-Hex 2% Top Sol 2oz TOPIC SCH (20:23)
[2019-02-10] VITALS: BP 111/60
[2019-02-10 04:00] VITALS: BP 121/65
--- NOTE | 2019-02-10 07:10 | NUR ---
NURSE NOTES:BEDSIDE ROUNDS DONE WITH NIGHT RN(ESTEPHANIA),PATIENT RESTING IN BED,PLEASANT/CONVERSANT.A/OX4.ROOM AIR,LEFT IJ BERTO CATH [id number] INTACT,PERITONEAL CATH AND ABDOMINAL DRSNG C/D/I.ABDOMEN MILDLY DISTENDED,SOFT,CLAIMS HE HAD WATERY BM LAST NIGHT.NO C/O PAIN.PLAN OF CARE FOR THE DAY DISCUSSED,VERBALIZED WITH UNDERSTANDING.
--- NOTE | 2019-02-10 07:10 | NUR ---
HAND-OFF: Report given to SCOTT Alex. Pt in stable condition. Rounds done with JULIANA CHAVEZ.
[2019-02-10 08:00] VITALS: BP 118/61
[2019-02-10] MEDS: Midodrine 10mg tab ORAL SCH ×3 (08:12→17:29)
[2019-02-10] MEDS: Docusate 100mg cap ORAL SCH ×3 (08:12→17:29)
[2019-02-10 08:13] LABS: HEMATOCRIT 25.4 % (42.0-52.0); MEAN CORPUSCULAR VOLUME 99 FL (80-99); PLATELET COUNT 86 K/UL (150-450); RED BLOOD COUNT 2.56 M/UL (4.70-6.10); RED CELL DISTRIBUTION WIDTH 15.3 % (11.6-14.8); WHITE BLOOD COUNT 8.1 K/UL (4.8-10.8)
[2019-02-10] MEDS: Pantoprazole Inj IVP SCH (08:13)
[2019-02-10 08:26] LABS: ANION GAP 13 mmol/L (5-15); BLOOD UREA NITROGEN 57 mg/dL (7-18); CALCIUM 8.2 MG/DL (8.5-10.1); CARBON DIOXIDE 23 MMOL/L (21-32); CHLORIDE 103 MMOL/L (98-107); CREATININE 12.6 MG/DL (0.55-1.30); POTASSIUM 4.7 MMOL/L (3.5-5.1); SODIUM 139 MMOL/L (136-145)
--- NOTE | 2019-02-10 10:45 | NUR ---
NURSE NOTES:ambulated with physical therapy using walker,tolerated activity,d/c fr. pt.
--- NOTE | 2019-02-10 10:48 | NUR ---
PT Note Patient is now safe and independent in all mobility and gait. Will DC physical therapy. Addendum: 02/10/19 at 1048 by MAHENDRA IVORY PT Amended: Links added.
[2019-02-10 12:00] VITALS: BP 121/60
--- NOTE | 2019-02-10 13:13 | Surgery Progress Note ---
Surgery Progress Note Subjective Additional Comments low grade fevers. no leukocytosis. had BM. pain improved. no n/v/f/c. ambulatory. tolerating diet. wounds c/d/i Objective Last 24 Hour Vital Signs Date Time Temp Pulse Resp B/P (MAP) Pulse Ox O2 Delivery O2 Flow Rate FiO2 02/10/19 12:00 99.5 85 17 121/60 (80) 96 02/10/19 10:03 Room Air 02/10/19 10:02 99 Room Air 21 02/10/19 08:00 99.4 86 18 118/61 (80) 95 02/10/19 07:10 Room Air 02/10/19 04:00 99.4 89 16 121/65 (83) 96 02/10/19 00:00 99.6 76 17 111/60 (77) 96 02/09/19 21:00 Room Air 02/09/19 20:08 97 Room Air 21 02/09/19 20:08 Room Air 02/09/19 20:00 100.0 83 17 122/52 (75) 97 02/09/19 15:45 98.6 86 18 117/60 (79) 97 I&O Intake and Output 02/09/19 02/10/19 19:00 07:00 Intake Total 550 ml 1440 ml Balance 550 ml 1440 ml Intake Oral 1440 ml IV Total 50 ml Hemodialysis 500 ml Dressing: dry Wound: clean Drains: other Cardiovascular: RSR Respiratory: clear Abdomen: soft, distended, non-tender, present bowel sounds Extremities: no tenderness, no cyanosis Laboratory Tests Test 02/10/19 07:52 White Blood Count 8.1 K/UL (4.8-10.8) Red Blood Count 2.56 M/UL (4.70-6.10) L Hemoglobin 8.0 G/DL (14.2-18.0) L Hematocrit 25.4 % (42.0-52.0) L Mean Corpuscular Volume 99 FL (80-99) Mean Corpuscular Hemoglobin 31.4 PG (27.0-31.0) H Mean Corpuscular Hemoglobin Concent 31.6 G/DL (32.0-36.0) L Red Cell Distribution Width 15.3 % (11.6-14.8) H Platelet Count 86 K/UL (150-450) L Mean Platelet Volume 8.7 FL (6.5-10.1) Neutrophils (%) (Auto) % (45.0-75.0) Lymphocytes (%) (Auto) % (20.0-45.0) Monocytes (%) (Auto) % (1.0-10.0) Eosinophils (%) (Auto) % (0.0-3.0) Basophils (%) (Auto) % (0.0-2.0) Differential Total Cells Counted 100 Neutrophils % (Manual) 79 % (45-75) H Lymphocytes % (Manual) 14 % (20-45) L Monocytes % (Manual) 7 % (1-10) Eosinophils % (Manual) 0 % (0-3) Basophils % (Manual) 0 % (0-2) Band Neutrophils 0 % (0-8) Platelet Estimate Decreased L Platelet Morphology Normal Anisocytosis 1+ Sodium Level 139 MMOL/L (136-145) Potassium Level 4.7 MMOL/L (3.5-5.1) Chloride Level 103 MMOL/L (98-107) Carbon Dioxide Level 23 MMOL/L (21-32) Anion Gap 13 mmol/L (5-15) Blood Urea Nitrogen 57 mg/dL (7-18) H Creatinine 12.6 MG/DL (0.55-1.30) H Estimat Glomerular Filtration Rate mL/min (>60) Glucose Level 90 MG/DL (74-106) Calcium Level 8.2 MG/DL (8.5-10.1) L Plan Problems: (1) ESRD (end stage renal disease) (2) S/p nephrectomy Assessment & Plan: recovering mild ileus labs improved had BM recovering doing well HD cath may need to be changed. advance diet Rx as written HD as per nephrology ambulate and out of bed AM labs incentive spirometry (3) CAD (coronary artery disease) Maxi Chinchilla Feb 10, 2019 13:13
--- NOTE | 2019-02-10 13:15 | NUR ---
NURSE NOTES:SEEN BY DR. EVANGELISTA GARBER RE:PATIENT HAD BM,STARTED ON SOFT DIET.
[2019-02-10 16:00] VITALS: BP 129/61
--- NOTE | 2019-02-10 17:10 | Nephrology Progress Note ---
Assessment/Plan Problem List: (1) ESRD (end stage renal disease) (2) S/p nephrectomy (3) CAD (coronary artery disease) (4) Smoker Plan HD 02/09 next 02/12 Protonix to po stop hydrate Midodrine antibiotic coverage has Vanco and Genta on board DC planning- OP HD placement Phos binders also coverage for Int Med Subjective ROS Limited/Unobtainable: No Objective Objective Last 24 Hour Vital Signs Date Time Temp Pulse Resp B/P (MAP) Pulse Ox O2 Delivery O2 Flow Rate FiO2 02/10/19 16:00 99.1 88 20 129/61 (83) 100 02/10/19 12:00 99.5 85 17 121/60 (80) 96 02/10/19 10:03 Room Air 02/10/19 10:02 99 Room Air 21 02/10/19 08:00 99.4 86 18 118/61 (80) 95 02/10/19 07:10 Room Air 02/10/19 04:00 99.4 89 16 121/65 (83) 96 02/10/19 00:00 99.6 76 17 111/60 (77) 96 02/09/19 21:00 Room Air 02/09/19 20:08 97 Room Air 21 02/09/19 20:08 Room Air 02/09/19 20:00 100.0 83 17 122/52 (75) 97 Intake and Output 02/09/19 02/10/19 19:00 07:00 Intake Total 550 ml 1440 ml Balance 550 ml 1440 ml Intake Oral 1440 ml IV Total 50 ml Hemodialysis 500 ml Laboratory Tests 02/10/19 07:52: White Blood Count 8.1, Red Blood Count 2.56L, Hemoglobin 8.0L, Hematocrit 25.4L , Mean Corpuscular Volume 99, Mean Corpuscular Hemoglobin 31.4H, Mean Corpuscular Hemoglobin Concent 31.6L, Red Cell Distribution Width 15.3H, Platelet Count 86L, Mean Platelet Volume 8.7, Neutrophils (%) (Auto) , Lymphocytes (%) (Auto) , Monocytes (%) (Auto) , Eosinophils (%) (Auto) , Basophils (%) (Auto) , Differential Total Cells Counted 100, Neutrophils % ( Manual) 79H, Lymphocytes % (Manual) 14L, Monocytes % (Manual) 7, Eosinophils % ( Manual) 0, Basophils % (Manual) 0, Band Neutrophils 0, Platelet Estimate DecreasedL, Platelet Morphology Normal, Anisocytosis 1+, Sodium Level 139, Potassium Level 4.7, Chloride Level 103, Carbon Dioxide Level 23, Anion Gap 13, Blood Urea Nitrogen 57H, Creatinine 12.6H, Estimat Glomerular Filtration Rate , Glucose Level 90, Calcium Level 8.2L Height (Feet): 5 Height (Inches): 5.00 Weight (Pounds): 168 General Appearance: no apparent distress Cardiovascular: normal rate Respiratory/Chest: lungs clear, decreased breath sounds Abdomen: soft, distended Tyson Chaudhary MD Feb 10, 2019 17:10
--- NOTE | 2019-02-10 17:50 | NUR ---
NURSE NOTES:NO SIGNIFICANT CHANGE,TOLERATED SOFT DIET.CLAIMS HE HAD 2 SOFT BM TODAY.
--- NOTE | 2019-02-10 19:10 | NUR ---
HAND-OFF: Report given to JUAN DAVID CHAVEZ.PATIENT STABLE..
--- NOTE | 2019-02-10 19:10 | NUR ---
HAND-OFF: Report given to ESTEPHANIA CHAVEZ.PATIENT ASLEEP DURING ROUNDS.NAD..
--- NOTE | 2019-02-10 19:15 | NUR ---
NURSE NOTES: Received report & pt from SCOTT Alex. Pt lying in bed, a&ox4, in room air. No s/s of acute distress & no c/o pain at this time. On contact precaution for VRE rectum. Peritoneal cath noted. Surgical dressing C/D/I. Lef IJ alonso cath double lumen intact. IV site intact/asymptomatic & S/L'd. Dr. Chinchilla aware that alonso cath not functioning properly & MD will be the one to decide what to do per report. Bed in lowest position, call light within reach. Will continue to monitor.
[2019-02-10 20:00] VITALS: BP 111/60
[2019-02-10] MEDS: Dyna-Hex 2% Top Sol 2oz TOPIC SCH (20:35)
[2019-02-11] VITALS (7 sets, daily range): BP systolic 109–148; BP diastolic 54–72
--- NOTE | 2019-02-11 01:17 | NUR ---
NURSE NOTES: Pt using IS with 15 breaths. Tolerated very well. Average volume inspired is 1000
[2019-02-11 06:09] LABS: HEMATOCRIT 24.8 % (42.0-52.0); HEMOGLOBIN 7.8 G/DL (14.2-18.0); MEAN CORPUSCULAR VOLUME 99 FL (80-99); PLATELET COUNT 102 K/UL (150-450); RED BLOOD COUNT 2.51 M/UL (4.70-6.10); RED CELL DISTRIBUTION WIDTH 14.9 % (11.6-14.8); WHITE BLOOD COUNT 7.1 K/UL (4.8-10.8)
[2019-02-11 06:26] LABS: ALANINE AMINOTRANSFERASE 23 U/L (12-78); ALBUMIN 2.1 G/DL (3.4-5.0); ALBUMIN/GLOBULIN RATIO 0.6 (1.0-2.7); ALKALINE PHOSPHATASE 146 U/L (46-116); ANION GAP 13 mmol/L (5-15); ASPARTATE AMINO TRANSFERASE 25 U/L (15-37); BILIRUBIN,TOTAL 0.8 MG/DL (0.2-1.0); BLOOD UREA NITROGEN 66 mg/dL (7-18); CALCIUM 8.1 MG/DL (8.5-10.1); CARBON DIOXIDE 23 MMOL/L (21-32); CHLORIDE 102 MMOL/L (98-107); CREATININE 14.2 MG/DL (0.55-1.30); PHOSPHORUS 7.2 MG/DL (2.5-4.9); POTASSIUM 4.9 MMOL/L (3.5-5.1); SODIUM 138 MMOL/L (136-145)
--- NOTE | 2019-02-11 07:12 | NUR ---
NURSE NOTES:bedside rounds done with fannie rn,patient asleep, room air,nad.
--- NOTE | 2019-02-11 07:12 | NUR ---
HAND-OFF: Report given to SCOTT Alex. Pt ins table condition. Rounds done. Left msg for Dr. Chinchilla re: pt's H/H 7.8 & 24.8, AM RN aware.
--- NOTE | 2019-02-11 07:32 | NUR ---
NURSE NOTES:patient sitting at the side of the bed,eating breakfast,a/ox4,room air,left ij alonso x2 ports,left hand h/c,abdominal drsng with peritoneal cath intact.nc/o pain,had bm this morning, claims its form,will continue plan of care.
[2019-02-11] MEDS: Midodrine 10mg tab ORAL SCH ×3 (07:54→16:55)
[2019-02-11] MEDS: Docusate 100mg cap ORAL SCH ×3 (07:54→16:55)
--- NOTE | 2019-02-11 09:12 | Pulmonology Progress Note ---
Assessment/Plan Assessment/Plan IMPRESSION: 1. End-stage renal disease for dialysis. 2. Status post left nephrectomy. 3. CAD. 4. Hypertension. 5. Hyperlipidemia. 6. COPD. 7. ESRD; s/p HD DISCUSSION: HD per renal Protonix DC IVF Midodrine antibiotic coverage has Vanco and Genta on board DC planning- OP HD placement Luis Maher M.D. Subjective Interval Events: None new Constitutional: Reports: no symptoms HEENT: Repors: no symptoms Respiratory: Reports: no symptoms Cardiovascular: Reports: no symptoms Gastrointestinal/Abdominal: Reports: no symptoms Genitourinary: Reports: no symptoms Neurologic: Reports: no symptoms Allergies: Coded Allergies: CEPHALEXIN (Verified Allergy, Intermediate, 12/26/18) ITCHING LEVOFLOXACIN (Verified Allergy, Intermediate, 12/26/18) ITCHING NITROFURANTOIN (Verified Allergy, Unknown, 12/25/18) Objective Last 24 Hour Vital Signs Date Time Temp Pulse Resp B/P (MAP) Pulse Ox O2 Delivery O2 Flow Rate FiO2 02/11/19 08:00 99.0 82 20 138/63 (88) 96 02/11/19 07:32 Room Air 02/11/19 04:00 98.6 74 18 116/60 (78) 95 02/11/19 00:26 95 Room Air 21 02/11/19 00:26 Room Air 02/11/19 00:00 98.9 73 18 109/54 (72) 95 02/10/19 21:00 Room Air 02/10/19 20:00 99.7 77 18 111/60 (77) 94 02/10/19 16:00 99.1 88 20 129/61 (83) 100 02/10/19 12:00 99.5 85 17 121/60 (80) 96 02/10/19 10:03 Room Air 02/10/19 10:02 99 Room Air 21 Intake and Output 02/10/19 02/11/19 18:59 06:59 Intake Total 300 ml 120 ml Balance 300 ml 120 ml Intake Oral 300 ml 120 ml # Voids 3 2 # Bowel Movements 2 General Appearance: no acute distress HEENT: normocephalic Respiratory/Chest: chest wall non-tender, lungs clear Cardiovascular: normal peripheral pulses, normal rate Abdomen: normal bowel sounds, soft, non tender Extremities: no cyanosis Laboratory Tests 02/11/19 05:40: White Blood Count 7.1, Red Blood Count 2.51L, Hemoglobin 7.8L, Hematocrit 24.8L , Mean Corpuscular Volume 99, Mean Corpuscular Hemoglobin 31.0, Mean Corpuscular Hemoglobin Concent 31.4L, Red Cell Distribution Width 14.9H, Platelet Count 102L, Mean Platelet Volume 6.4L, Neutrophils (%) (Auto) , Lymphocytes (%) (Auto) , Monocytes (%) (Auto) , Eosinophils (%) (Auto) , Basophils (%) (Auto) , Differential Total Cells Counted 100, Neutrophils % ( Manual) 82H, Lymphocytes % (Manual) 6L, Monocytes % (Manual) 10, Eosinophils % ( Manual) 1, Basophils % (Manual) 1, Band Neutrophils 0, Platelet Estimate DecreasedL, Platelet Morphology Normal, Hypochromasia 1+, Anisocytosis 1+, Sodium Level 138, Potassium Level 4.9, Chloride Level 102, Carbon Dioxide Level 23, Anion Gap 13, Blood Urea Nitrogen 66H, Creatinine 14.2H, Estimat Glomerular Filtration Rate , Glucose Level 90, Calcium Level 8.1L, Phosphorus Level 7.2H, Magnesium Level 2.9H, Total Bilirubin 0.8, Aspartate Amino Transf (AST/SGOT) 25 , Alanine Aminotransferase (ALT/SGPT) 23, Alkaline Phosphatase 146H, Total Protein 5.9L, Albumin 2.1L, Globulin 3.8, Albumin/Globulin Ratio 0.6L, Random Gentamicin Level 4.9, Random Vancomycin Level 15.2 Current Medications Medications (Trade) Dose Ordered Sig/Naa Route PRN Reason Start Time Stop Time Status Last Admin Dose Admin Acetaminophen (Tylenol) 650 mg Q6H PRN ORAL Mild Pain (Pain Scale 1-3) 02/08/19 11:30 03/08/19 11:29 Chlorhexidine Gluconate (Tamika-Hex 2%) 1 applic DAILY@1999 TOPIC 02/08/19 20:00 03/10/19 19:59 02/10/19 20:35 Diphenhydramine HCl (Benadryl) 12.5 mg Q6H PRN IVP Itching/Pruritis 02/08/19 11:30 03/08/19 11:29 Docusate Sodium (Colace) 100 mg TID ORAL 02/09/19 18:00 03/10/19 17:59 02/11/19 07:54 Epoetin Ferdinand (Epoetin Ferdinand(ESRD on dialysis)) 10,000 unit MON-MON-MON SUBQ 02/11/19 21:00 03/13/19 20:59 Hydromorphone HCl (Dilaudid) 0.5 mg Q3H PRN IVP PAIN 4-02/09/19 13:15 02/13/19 11:29 Metoclopramide HCl (Reglan) 10 mg THREE TIMES A DAY ORAL 02/09/19 18:00 03/11/19 17:59 02/11/19 07:54 Midodrine (Pro-Amatine) 10 mg THREE TIMES A DAY ORAL 02/08/19 13:00 03/08/19 17:59 02/11/19 07:54 Nicotine (Nicoderm) 1 patch Q24H TDERMAL 02/08/19 11:15 03/10/19 11:14 02/10/19 11:22 Ondansetron HCl (Zofran) 4 mg Q6H PRN IVP Nausea & Vomiting 02/08/19 11:30 03/08/19 11:29 Pantoprazole (Protonix) 40 mg EVERY 12 HOURS ORAL 02/10/19 21:00 03/12/19 20:59 02/11/19 07:54 Sevelamer Carbonate (Renvela) 2,400 mg THREE TIMES A DAY ORAL 02/11/19 09:00 03/11/19 17:59 Luis Maher MD Feb 11, 2019 09:12
--- NOTE | 2019-02-11 09:45 | NUR ---
NURSE NOTES:MESSAGE LEFT TO SHARDA([facility])RE:PATIENT FOR DIALYSIS TODAY
--- NOTE | 2019-02-11 10:40 | Nephrology Progress Note ---
Assessment/Plan Problem List: (1) ESRD (end stage renal disease) (2) S/p nephrectomy (3) CAD (coronary artery disease) (4) Smoker Plan HD 02/09 next 02/11 transfuse one unit Protonix to po stop hydrate Midodrine antibiotic coverage has Vanco and Genta on board DC planning- OP HD placement Phos binders due placement Objective Objective Last 24 Hour Vital Signs Date Time Temp Pulse Resp B/P (MAP) Pulse Ox O2 Delivery O2 Flow Rate FiO2 02/11/19 08:00 99.0 82 20 138/63 (88) 96 02/11/19 07:32 Room Air 02/11/19 04:00 98.6 74 18 116/60 (78) 95 02/11/19 00:26 95 Room Air 21 02/11/19 00:26 Room Air 02/11/19 00:00 98.9 73 18 109/54 (72) 95 02/10/19 21:00 Room Air 02/10/19 20:00 99.7 77 18 111/60 (77) 94 02/10/19 16:00 99.1 88 20 129/61 (83) 100 02/10/19 12:00 99.5 85 17 121/60 (80) 96 Intake and Output 02/10/19 02/11/19 19:00 07:00 Intake Total 300 ml 120 ml Balance 300 ml 120 ml Intake Oral 300 ml 120 ml # Voids 3 2 # Bowel Movements 2 Laboratory Tests 02/11/19 05:40: White Blood Count 7.1, Red Blood Count 2.51L, Hemoglobin 7.8L, Hematocrit 24.8L , Mean Corpuscular Volume 99, Mean Corpuscular Hemoglobin 31.0, Mean Corpuscular Hemoglobin Concent 31.4L, Red Cell Distribution Width 14.9H, Platelet Count 102L, Mean Platelet Volume 6.4L, Neutrophils (%) (Auto) , Lymphocytes (%) (Auto) , Monocytes (%) (Auto) , Eosinophils (%) (Auto) , Basophils (%) (Auto) , Differential Total Cells Counted 100, Neutrophils % ( Manual) 82H, Lymphocytes % (Manual) 6L, Monocytes % (Manual) 10, Eosinophils % ( Manual) 1, Basophils % (Manual) 1, Band Neutrophils 0, Platelet Estimate DecreasedL, Platelet Morphology Normal, Hypochromasia 1+, Anisocytosis 1+, Sodium Level 138, Potassium Level 4.9, Chloride Level 102, Carbon Dioxide Level 23, Anion Gap 13, Blood Urea Nitrogen 66H, Creatinine 14.2H, Estimat Glomerular Filtration Rate , Glucose Level 90, Calcium Level 8.1L, Phosphorus Level 7.2H, Magnesium Level 2.9H, Total Bilirubin 0.8, Aspartate Amino Transf (AST/SGOT) 25 , Alanine Aminotransferase (ALT/SGPT) 23, Alkaline Phosphatase 146H, Total Protein 5.9L, Albumin 2.1L, Globulin 3.8, Albumin/Globulin Ratio 0.6L, Random Gentamicin Level 4.9, Random Vancomycin Level 15.2 Height (Feet): 5 Height (Inches): 5.00 Weight (Pounds): 168 General Appearance: no apparent distress, alert, other - weak Cardiovascular: normal rate Respiratory/Chest: decreased breath sounds Abdomen: distended Tyson Chaudhary MD Feb 11, 2019 10:40
--- NOTE | 2019-02-11 13:00 | NUR ---
NURSE NOTES: DIALYSIS NURSE CALLED IN,STATED HE WILL BE IN LATER THIS AFTERNOON,INFORMED ALSO THAT 1 UNIT PRBC TO BE GIVEN.PATIENT INFORMED
--- NOTE | 2019-02-11 14:23 | NUR ---
RD ASSESSMENT & RECOMMENDATIONS SEE CARE ACTIVITY FOR COMPLETE ASSESSMENT DAILY ESTIMATED NEEDS: Needs based on ESRD on HD, 68kg 30-35 kcals/kg 2550-7882 total kcals 1.2-1.8 g protein/kg 82-122 g total protein Fluid per MD, on HD NUTRITION DIAGNOSIS: Increased kcal and protein needs r/t ESRD as evidenced by pt on HD PO DIET RECOMMENDATIONS: RENAL/ SOFT DIET ADDITIONAL RECOMMENDATIONS: 1) Add NEPRO 1 tetra shala daily (425 kcal/19g pro each) 2) Obtain a standing weight- POST HD 3) Snacks in b/w meals.
--- NOTE | 2019-02-11 16:32 | NUR ---
NURSE NOTES:SPOKE TO STEPHEN(DIALYSIS NURSE)STATED HE WILL BE HERE AT 7PM TONIGHT.PATIENT UPDATED.
--- NOTE | 2019-02-11 17:22 | NUR ---
Social Service Note NAIDA spoke with Wes through [facility] intake [phone]. Wes requesting clinical information to be faxed to [phone] for review of modality change. NAIDA met with patient and updated on progress of dialysis set. Will follow
--- NOTE | 2019-02-11 18:00 | NUR ---
NURSE NOTES:dialysis nurse(ricardo) here to dialyze patient.
--- NOTE | 2019-02-11 18:30 | NUR ---
NURSE NOTES:I UNIT PRBC#[id number] CHECKED WITH DIMPLE CHAVEZ.AND BLOOD HANDED TO DIALYSIS NURSE TO START.
--- NOTE | 2019-02-11 19:15 | NUR ---
HAND-OFF: Report given to ESTEPHANIA CHAVEZ.PATIENT STABLEGETTING DIALYSIS.
--- NOTE | 2019-02-11 19:15 | NUR ---
NURSE NOTES: Received report & pt from SCOTT Alex. Pt lying in bed, a&ox4, in room air. No s/s of acute distress & no c/o pain at this time. Currently dialyzing with HD nurse Dale. On contact precaution for VRE rectum. Peritoneal cath noted. Surgical dressing C/D/I. Lef IJ alonso cath double lumen intact. IV site intact/asymptomatic & S/L'd. Bed in lowest position, call light within reach. Will continue to monitor.
--- NOTE | 2019-02-11 19:40 | NUR ---
NURSE NOTES: Dialysis done. Per dialysis nurse Dale CHAVEZ, 500ml out. Pt in no acute distress & denies pain.
--- NOTE | 2019-02-11 20:00 | NUR ---
NURSE NOTES: Dr. Chinchilla came to see pt. aware of Left MAGGIE gupta nicole not functioning well. Addendum: 02/12/19 at 0612 by Leeann Marquez RN @1999 Per , "It's okay as long as it's working"
[2019-02-11] MEDS: Dyna-Hex 2% Top Sol 2oz TOPIC SCH (20:17)
--- NOTE | 2019-02-11 20:37 | Surgery Progress Note ---
Surgery Progress Note Subjective Symptoms: improved, tolerating diet, passing flatus, BM, pain decreased Additional Comments HD today went well. otherwise improving. wants to go home Objective Last 24 Hour Vital Signs Date Time Temp Pulse Resp B/P (MAP) Pulse Ox O2 Delivery O2 Flow Rate FiO2 02/11/19 16:06 98.4 76 20 119/66 (83) 95 02/11/19 12:00 98.5 73 20 118/60 (79) 97 02/11/19 08:00 99.0 82 20 138/63 (88) 96 02/11/19 07:32 Room Air 02/11/19 07:00 Room Air 02/11/19 07:00 96 Room Air 21 02/11/19 04:00 98.6 74 18 116/60 (78) 95 02/11/19 00:26 95 Room Air 21 02/11/19 00:26 Room Air 02/11/19 00:00 98.9 73 18 109/54 (72) 95 02/10/19 21:00 Room Air I&O Intake and Output 02/10/19 02/11/19 19:00 07:00 Intake Total 300 ml 120 ml Balance 300 ml 120 ml Intake Oral 300 ml 120 ml # Voids 3 2 # Bowel Movements 2 Dressing: dry Wound: clean Drains: other Cardiovascular: RSR Respiratory: clear Abdomen: soft, distended, non-tender, present bowel sounds Extremities: no edema, no cyanosis Laboratory Tests Test 02/11/19 05:40 White Blood Count 7.1 K/UL (4.8-10.8) Red Blood Count 2.51 M/UL (4.70-6.10) L Hemoglobin 7.8 G/DL (14.2-18.0) L Hematocrit 24.8 % (42.0-52.0) L Mean Corpuscular Volume 99 FL (80-99) Mean Corpuscular Hemoglobin 31.0 PG (27.0-31.0) Mean Corpuscular Hemoglobin Concent 31.4 G/DL (32.0-36.0) L Red Cell Distribution Width 14.9 % (11.6-14.8) H Platelet Count 102 K/UL (150-450) L Mean Platelet Volume 6.4 FL (6.5-10.1) L Neutrophils (%) (Auto) % (45.0-75.0) Lymphocytes (%) (Auto) % (20.0-45.0) Monocytes (%) (Auto) % (1.0-10.0) Eosinophils (%) (Auto) % (0.0-3.0) Basophils (%) (Auto) % (0.0-2.0) Differential Total Cells Counted 100 Neutrophils % (Manual) 82 % (45-75) H Lymphocytes % (Manual) 6 % (20-45) L Monocytes % (Manual) 10 % (1-10) Eosinophils % (Manual) 1 % (0-3) Basophils % (Manual) 1 % (0-2) Band Neutrophils 0 % (0-8) Platelet Estimate Decreased L Platelet Morphology Normal Hypochromasia 1+ Anisocytosis 1+ Sodium Level 138 MMOL/L (136-145) Potassium Level 4.9 MMOL/L (3.5-5.1) Chloride Level 102 MMOL/L (98-107) Carbon Dioxide Level 23 MMOL/L (21-32) Anion Gap 13 mmol/L (5-15) Blood Urea Nitrogen 66 mg/dL (7-18) H Creatinine 14.2 MG/DL (0.55-1.30) H Estimat Glomerular Filtration Rate mL/min (>60) Glucose Level 90 MG/DL (74-106) Calcium Level 8.1 MG/DL (8.5-10.1) L Phosphorus Level 7.2 MG/DL (2.5-4.9) H Magnesium Level 2.9 MG/DL (1.8-2.4) H Total Bilirubin 0.8 MG/DL (0.2-1.0) Aspartate Amino Transf (AST/SGOT) 25 U/L (15-37) Alanine Aminotransferase (ALT/SGPT) 23 U/L (12-78) Alkaline Phosphatase 146 U/L (46-116) H Total Protein 5.9 G/DL (6.4-8.2) L Albumin 2.1 G/DL (3.4-5.0) L Globulin 3.8 g/dL Albumin/Globulin Ratio 0.6 (1.0-2.7) L Random Gentamicin Level 4.9 ug/mL Random Vancomycin Level 15.2 ug/mL Plan Problems: (1) ESRD (end stage renal disease) (2) S/p nephrectomy Assessment & Plan: recovering mild ileus labs improved had BM recovering doing well HD cath may need to be changed. advance diet Rx as written HD as per nephrology ambulate and out of bed AM labs incentive spirometry d/c planning (3) CAD (coronary artery disease) Maxi Chinchilla Feb 11, 2019 20:37
[2019-02-11] MEDS ORDERED: Epoetin Alfa(ESRD on dialysis)10,000 unit/ml vial SUBQ SCH (21:00)
[2019-02-12] MEDS ORDERED: NORVASC10 MG ORAL (01:54)
[2019-02-12] MEDS ORDERED: IMITREX50 MG ORAL (01:54)
[2019-02-12] MEDS ORDERED: CRESTOR10 M1 ORAL (01:54)
[2019-02-12] MEDS ORDERED: NEXIUM40 MG ORAL (01:54)
[2019-02-12] MEDS ORDERED: FLOVENT2 PUFF1 INH (01:54)
[2019-02-12] MEDS ORDERED: COMPAZINE10 MG ORAL (01:54)
[2019-02-12] MEDS ORDERED: FLUCONAZOLE100 MG ORAL (01:54)
[2019-02-12] MEDS ORDERED: CLONAZEPAM2 MG PO (01:54)
[2019-02-12] MEDS ORDERED: ZEMPLAR1 MC1 ORAL ×2 (01:54)
[2019-02-12] MEDS ORDERED: HYDROCHLOROTH12.5 M2 ORAL (01:54)
[2019-02-12] MEDS ORDERED: SEROQUEL50 MG ORAL (01:54)
[2019-02-12] MEDS ORDERED: SYMBICORT 16010.2 G1 IH (01:54)
[2019-02-12] MEDS ORDERED: SENOKOT-S TABL1 EACH PO (01:54)
[2019-02-12] MEDS ORDERED: MEDROL DOSEPAK4 MG ORAL (01:54)
[2019-02-12] MEDS ORDERED: QUININE SULFAT324 MG PO (01:54)
[2019-02-12] MEDS ORDERED: GLUCOPHAGE XR750 MG ORAL (01:54)
[2019-02-12] MEDS ORDERED: TRAMADOL HCL100 M2 ORAL (01:54)
[2019-02-12] MEDS ORDERED: FLUOXETINE HCL20 MG ORAL (01:54)
[2019-02-12] MEDS ORDERED: SYMBICORT 80-10.2 G1 IH (02:17)
[2019-02-12 04:00] VITALS: BP 127/66
--- NOTE | 2019-02-12 07:40 | NUR ---
NURSE NOTES: Pt awake , laying in bed. Call light in reach. Bed in safe position . Current plan .of care will be followed
--- NOTE | 2019-02-12 07:41 | NUR ---
HAND-OFF: Report given to SCOTT Felipe. Rounds done. Pt in stable condition.
[2019-02-12 08:00] VITALS: BP 153/70
[2019-02-12] MEDS: Docusate 100mg cap ORAL SCH (08:09)
[2019-02-12] MEDS: Midodrine 10mg tab ORAL SCH (08:10)
--- NOTE | 2019-02-12 09:51 | Pulmonology Progress Note ---
Assessment/Plan Assessment/Plan IMPRESSION: 1. End-stage renal disease for dialysis. 2. Status post left nephrectomy. 3. CAD. 4. Hypertension. 5. Hyperlipidemia. 6. COPD. 7. ESRD; s/p HD DISCUSSION: HD per renal Protonix DC IVF Midodrine antibiotic coverage DC planning- OP HD placement Luis Maher M.D. Subjective Interval Events: No new complaints; Hgb 7.8 Constitutional: Reports: no symptoms HEENT: Repors: no symptoms Respiratory: Reports: no symptoms Cardiovascular: Reports: no symptoms Gastrointestinal/Abdominal: Reports: no symptoms Genitourinary: Reports: no symptoms Neurologic: Reports: no symptoms Allergies: Coded Allergies: CEPHALEXIN (Verified Allergy, Intermediate, 12/26/18) ITCHING LEVOFLOXACIN (Verified Allergy, Intermediate, 12/26/18) ITCHING NITROFURANTOIN (Verified Allergy, Unknown, 12/25/18) Objective Last 24 Hour Vital Signs Date Time Temp Pulse Resp B/P (MAP) Pulse Ox O2 Delivery O2 Flow Rate FiO2 02/12/19 04:00 97.4 76 18 127/66 (86) 96 02/11/19 23:53 98.4 79 16 139/65 (89) 97 02/11/19 21:00 Room Air 02/11/19 20:00 98.6 85 18 148/72 (97) 98 02/11/19 16:06 98.4 76 20 119/66 (83) 95 02/11/19 12:00 98.5 73 20 118/60 (79) 97 Intake and Output 02/11/19 02/12/19 18:59 06:59 Intake Total 480 ml 120 ml Balance 480 ml 120 ml Intake Oral 480 ml 120 ml # Voids 1 General Appearance: no acute distress HEENT: normocephalic Respiratory/Chest: chest wall non-tender, lungs clear Cardiovascular: normal peripheral pulses, normal rate Abdomen: normal bowel sounds Current Medications Medications (Trade) Dose Ordered Sig/Naa Route PRN Reason Start Time Stop Time Status Last Admin Dose Admin Acetaminophen (Tylenol) 650 mg Q6H PRN ORAL Mild Pain (Pain Scale 1-3) 02/08/19 11:30 03/08/19 11:29 Chlorhexidine Gluconate (Tamika-Hex 2%) 1 applic DAILY@2000 TOPIC 02/08/19 20:00 03/10/19 19:59 02/11/19 20:17 Diphenhydramine HCl (Benadryl) 12.5 mg Q6H PRN IVP Itching/Pruritis 02/08/19 11:30 03/08/19 11:29 Docusate Sodium (Colace) 100 mg TID ORAL 02/09/19 18:00 03/10/19 17:59 02/11/19 16:55 Epoetin Ferdinand (Epoetin Ferdinand(ESRD on dialysis)) 10,000 unit SUBQ 02/11/19 21:00 03/13/19 20:59 02/11/19 20:17 Hydromorphone HCl (Dilaudid) 0.5 mg Q3H PRN IVP PAIN 4-02/09/19 13:15 02/13/19 11:29 Metoclopramide HCl (Reglan) 10 mg THREE TIMES A DAY ORAL 02/09/19 18:00 03/11/19 17:59 02/12/19 08:10 Midodrine (Pro-Amatine) 10 mg THREE TIMES A DAY ORAL 02/08/19 13:00 03/08/19 17:59 02/12/19 08:10 Nicotine (Nicoderm) 1 patch Q24H TDERMAL 02/08/19 11:15 03/10/19 11:14 02/11/19 11:51 Ondansetron HCl (Zofran) 4 mg Q6H PRN IVP Nausea & Vomiting 02/08/19 11:30 03/08/19 11:29 Pantoprazole (Protonix) 40 mg EVERY 12 HOURS ORAL 02/10/19 21:00 03/12/19 20:59 02/12/19 08:10 Sevelamer Carbonate (Renvela) 2,400 mg THREE TIMES A DAY ORAL 02/11/19 09:00 03/11/19 17:59 02/12/19 08:10 Luis Maher MD Feb 12, 2019 09:51
--- NOTE | 2019-02-12 11:03 | NUR ---
Social Service Note SW confirmed faxed was received and will be reviewed for processing today. Ambrosio is the assigned computer security specialist [phone]. Will follow up this afternoon.
[2019-02-12 12:00] VITALS: BP 106/68
--- NOTE | 2019-02-12 12:43 | NUR ---
CHARGE NURSE NOTE: Pt is anxious, wants to leave as soon as possible. Pt needs an arrangement of Hemodialysis facility for few weeks([facility]). Spoke with Sharona TAYLOR. She is still working on arrangement.
--- NOTE | 2019-02-12 13:08 | NUR ---
NURSE NOTES: Dr Layne here explained the importance of having acces to dialysis, . Pt is anxious and is not accepting pt education. " i feel much better , let me sign to get out of here, I can walk to get this done" Pt son is here and spoke to awaiting cse management follow up
--- NOTE | 2019-02-12 13:19 | NUR ---
SAND SHOVELER NOTES SPOKE WITH JARETH FROM [facility] EXPLAINED TO JARETH PT IS NO LONGER ON PERITONEAL DIALYSIS AND IS NOW ON HEMODIALYSIS, PT SCHEDULED CHAIR TIME IS 12 NOON ON MONDAY,MONDAY,MONDAY.FAMILY AT BEDSIDE MADE AWARE. [address] [address]
--- NOTE | 2019-02-12 14:06 | NUR ---
NURSE NOTES: Pt discharged arrangements made for pt to have dialysis. IV removed. Son , Zbigniew present, will assist pt home. He will also be taking father to dialysis. Sent with belongings. Son Zbigniew has dialysis information. Dr Rdz spoke to son in regards to healing process of kidney removal , and not having peritoneal dialysis. Discharge packet given to include renal diet, as well as sign and symptoms of malfunction of hemodialysis catheter.
--- NOTE | 2019-02-12 14:24 | Surgery Progress Note ---
Surgery Progress Note Subjective Additional Comments no acute events. improved .tolerating diet. ambulatory. bowel function Objective Last 24 Hour Vital Signs Date Time Temp Pulse Resp B/P (MAP) Pulse Ox O2 Delivery O2 Flow Rate FiO2 02/12/19 12:00 98.0 55 19 106/68 (81) 95 02/12/19 09:00 Room Air 02/12/19 08:00 98.6 76 18 153/70 (97) 02/12/19 04:00 97.4 76 18 127/66 (86) 96 02/11/19 23:53 98.4 79 16 139/65 (89) 97 02/11/19 21:00 Room Air 02/11/19 20:00 98.6 85 18 148/72 (97) 98 02/11/19 16:06 98.4 76 20 119/66 (83) 95 I&O Intake and Output 02/11/19 02/12/19 19:00 07:00 Intake Total 480 ml 120 ml Balance 480 ml 120 ml Intake Oral 480 ml 120 ml # Voids 1 Dressing: dry Wound: clean Drains: other Cardiovascular: RSR Respiratory: clear Abdomen: soft, flat, distended, non-tender, present bowel sounds Extremities: no tenderness, no cyanosis Plan Problems: (1) ESRD (end stage renal disease) (2) S/p nephrectomy Assessment & Plan: recovering mild ileus labs improved had BM recovering doing well HD cath may need to be changed. advance diet Rx as written HD as per nephrology ambulate and out of bed AM labs incentive spirometry d/c home today (3) CAD (coronary artery disease) Maxi Chinchilla Feb 12, 2019 14:24
--- NOTE | 2019-02-12 14:32 | Nephrology Progress Note ---
Assessment/Plan Problem List: (1) ESRD (end stage renal disease) (2) S/p nephrectomy (3) CAD (coronary artery disease) (4) Smoker Plan HD 02/09 next 02/11 done anxious to go home transfuse one unit Protonix to po stop hydrate Midodrine antibiotic coverage has Vanco and Genta on board DC planning- OP HD placement Phos binders due placement Subjective ROS Limited/Unobtainable: No Interval Events/Complaints seen at 11.30 am Objective Objective Last 24 Hour Vital Signs Date Time Temp Pulse Resp B/P (MAP) Pulse Ox O2 Delivery O2 Flow Rate FiO2 02/12/19 12:00 98.0 55 19 106/68 (81) 95 02/12/19 09:00 Room Air 02/12/19 08:00 98.6 76 18 153/70 (97) 02/12/19 04:00 97.4 76 18 127/66 (86) 96 02/11/19 23:53 98.4 79 16 139/65 (89) 97 02/11/19 21:00 Room Air 02/11/19 20:00 98.6 85 18 148/72 (97) 98 02/11/19 16:06 98.4 76 20 119/66 (83) 95 Intake and Output 02/11/19 02/12/19 19:00 07:00 Intake Total 480 ml 120 ml Balance 480 ml 120 ml Intake Oral 480 ml 120 ml # Voids 1 Height (Feet): 5 Height (Inches): 5.00 Weight (Pounds): 167 General Appearance: no apparent distress Cardiovascular: normal rate Respiratory/Chest: lungs clear Abdomen: soft Tyson Chaudhary MD Feb 12, 2019 14:32
--- NOTE | 2019-02-13 12:32 | Discharge Summary ---
Discharge Summary Hospital Course Date of Admission Feb 06, 2019 at 05:36 Date of Discharge Feb 12, 2019 at 14:01 Admitting Diagnosis Left renal mass Reason for Hospitalization: Elective surgery HPI Cinthia Huffman is a 78 year old male who was admitted on Feb 06, 2019 at 05: 36 for Left Renal Mass. The patient with end-stage renal disease, on peritoneal dialysis, history of renal stones. In the last several years, patient had multiple episodes of gross hematuria and urosepsis, was admitted to the hospital, treated with IV antibiotics. MRI showed some filling defects in the collecting system, and the retrograde pyelogram showed complete obstruction of the left ureter. Treatment options were discussed with patient in great length including all potential complications. Patient understood the nature of the procedure and consented to surgery. Patient was admitted for elective surgery. Consultations Dr Porter - general surgeon Dr Maher - IM Dr Chaudhary - line prep cook Procedures s/p 02/06/[address] Desai Laparoscopic radical nephroureterectomy. s/p 02/06/[address] Porter Hemostasis of splenic bleeding. Left internal jugular temporary hemodialysis catheter placement. Hospital Course status psot surgery status post perioperative antibiotics pain management addressed, and pain was controlled pastern started on hemodialysis ( prior was getting peritoneal dialysis) line prep cook followed HD was provided as per line prep cook recommendation via newly inserted temporary HD with close monitoring of volumes, renal paramerts and electrolytes hemodynamic status was closely monitored , patient started on midodrine hemoglobin and hematocrit were closely monitored with goal to keep hemoglobin above 7 patient undergone transfusion of total of 4 u of packed red blood cells and one unit of plateletpheresis anemia work-up was consistent with anemia chronic disease with elevated ferritin 429 patient started on Epogen GI prophylaxis provided patient initially with mild ileus out of bed mobilization was strongly encouraged ileus resolved, patient started on diet as per surgeon clearance diet was slowly advanced as tolerated ambulation was encouraged incentive spirometer provided while patient was in the bed bowel regimen instituted patient was counseled on smoking cessation and started on nicotine patch hepatitis panel was negative, outpatient hemodialysis arranged - [facility] - will be now on hemodialysis pathology of left renal mass revealed acute pyelonephritis, acquired cystic kidney disease patient stabilized and was ready for discharge ( pain controlled, hemodynamically stable, incision clean and dry, tolerated diet, ambulated, had bowel movement) FINAL DIAGNOSES End-stage renal disease, requiring peritoneal dialysis Left hydronephrosis Left renal mass s/p left laparoscopic radical nephroureterectomy. 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 Anemia Mild ileus -resolved History of hypertension Hyperlipidemia COPD Coronary artery disease Smoker Discharge Medications Continued Medications: [ Allopurinol] () 100 MG PO BID Albuterol Sulfate (Ventolin Hfa) 18 Gm Hfa.aer.ad 2 PUFFS INH EVERY 6 HOURS, #18 GM 0 Refills Budesonide/Formoterol Fumarate (Symbicort 80-4.5 Mcg Inhaler) 10.2 Gm Hfa.aer.ad 1 PUFF IH BID, #1 INH 0 Refills (This prescription has been renewed) Diltiazem HCl (Diltiazem 24HR Cd) 180 Mg Cap.er.24h 180 MG ORAL , CAP (This prescription has been renewed) Docusate Sodium* (Docusate Sodium*) 250 Mg Capsule 250 MG ORAL DA, CAP (This prescription has been renewed) Ergocalciferol (Vitamin D2)* (Vitamin D*) 50,000 Unit Capsule 81788 UNIT ORAL ONCE A WEEK, CAP (This prescription has been renewed) Lactulose (Lactulose) 10 Gm/15 Ml Solution 10 GM PO DAILY PRN for Constipation (This prescription has been renewed) Pravastatin Sod* (Pravastatin Sod*) 20 Mg Tablet 20 MG ORAL BEDTIME, TAB (This prescription has been renewed) Sevelamer Carbonate* (Renvela*) 0.8 Gm Powd.pack 1600 MG ORAL TID, PACK Tamsulosin Hcl (Tamsulosin Hcl*) 0.4 Mg Cap.er.24h 0.4 MG ORAL BEDTIME, CAP (This prescription has been renewed) Discharge Condition Upon Discharge: stable Discharge Disposition Patient was discharged to Home () Discharge Instructions Discharge Instructions Special Instructions I have been assigned to complete a D/C Summary on this account. I was not involved in the patient management Kary Torres NP February 13, 2019 12:32
== END 2019-02-12 14:01 | disposition home or self-care (01) | DRG 660 ==
LOC: SDSOVERFLO 05:36 → ICU 12:52 → 3E 02-08 11:15
PROC: 0TT14ZZ Resection of Left Kidney, Percutaneous Endoscopic Approach (ICD-10-PCS; principal; 2019-02-06 07:30)
PROC: 0TT74ZZ Resection of Left Ureter, Percutaneous Endoscopic Approach (ICD-10-PCS; principal; 2019-02-06 07:30)
PROC: 0W3G4ZZ Control Bleeding in Peritoneal Cavity, Percutaneous Endoscopic Approach (ICD-10-PCS; principal; 2019-02-06 07:30)
PROC: 0DNW4ZZ Release Peritoneum, Percutaneous Endoscopic Approach (ICD-10-PCS; principal; 2019-02-06 07:30)
PROC: 05HN33Z Insertion of Infusion Device into Left Internal Jugular Vein, Percutaneous Approach (ICD-10-PCS; principal; 2019-02-06 07:30)
PROC: 5A1D70Z Performance of Urinary Filtration, Intermittent, Less than 6 Hours Per Day (ICD-10-PCS; 2019-02-07)
DX: N13.6 Pyonephrosis (principal); I12.0 Hypertensive chronic kidney disease with stage 5 chronic kidney disease or end stage renal disease; D78.12 Accidental puncture and laceration of the spleen during other procedure; K56.7 Ileus, unspecified; N18.6 End stage renal disease; Z99.2 Dependence on renal dialysis; K66.0 Peritoneal adhesions (postprocedural) (postinfection); E75.5 Other lipid storage disorders; I25.10 Atherosclerotic heart disease of native coronary artery without angina pectoris; Z95.5 Presence of coronary angioplasty implant and graft; N40.0 Benign prostatic hyperplasia without lower urinary tract symptoms; D73.3 Abscess of spleen; J44.9 Chronic obstructive pulmonary disease, unspecified; F17.200 Nicotine dependence, unspecified, uncomplicated; D64.9 Anemia, unspecified; N28.1 Cyst of kidney, acquired
CPT/HCPCS: 36415; 71045; 80048; 80053; 80061; 80170; 80202; 82248; 82533; 82607; 82728; 82746; 82977; 83036; 83540; 83550; 83690; 83735; 83880; 84100; 84443; 84484; 84550; 85007; 85025; 85610; 85730; 86140; 86706; 86707; 86803; 86850; 86900; 86901; 86920; 87081; 94003; 94150; 94760; J1580; J2250; J2370; J2710; J2765; S0077